=== PATIENT | female | born 1950 | race Caucasian/White ===

== ENCOUNTER 2020-11-01 09:24 | Outpatient (CLI) | payer MEDICARE, BC, SELFPAY ==
--- NOTE | 2020-11-01 09:33 | MM_ITS ---
WS: [id number] BILATERAL DIGITAL SCREENING MAMMOGRAPHY WITH CAD CLINICAL INFORMATION: SCREENING HISTORY: Screening mammogram. No current complaints. COMPARISON: 2018 TECHNIQUE: Bilateral CC and MLO views. FINDINGS: The breasts are composed of heterogeneous fibroglandular density tissue, which can limit the detectio n of small underlying mass lesions. No suspicious mass, asymmetry, calcifications, or architectural d istortion. No evidence of malignancy. Stable punctate calcifications. MM/[place] [id number] IMPRESSION: BI-RADS: 2-Benign FOLLOW UP: 1 Year Follow-up Recommend return to annual screening mammography.
== END 2020-11-01 09:25 | disposition home or self-care (01) ==
LOC: RADSHAW 09:29
PROVIDERS: Family Provider Family Medicine; PCP Family Medicine; Visit Provider Family Medicine
DX: Z12.31 Encounter for screening mammogram for malignant neoplasm of breast (principal)
CPT/HCPCS: 77067

== ENCOUNTER 2021-10-09 11:32 | Outpatient (RCR) | payer MEDICARE, BC, SELFPAY | END 2021-10-23 23:59 | disposition home or self-care (01) | LOC: SPT 11:32 | PROVIDERS: PCP Family Medicine; Visit Provider Family Medicine | DX: M54.6 Pain in thoracic spine (principal) | CPT/HCPCS: 97110; 97162 ==

== ENCOUNTER 2021-10-24 06:00 | Outpatient (RCR) | payer MEDICARE, BC, SELFPAY | END 2021-11-23 23:59 | disposition home or self-care (01) | LOC: SPT 06:00 | PROVIDERS: PCP Family Medicine; Visit Provider Family Medicine | DX: M54.6 Pain in thoracic spine (principal) | CPT/HCPCS: 97110 ==

== ENCOUNTER 2022-01-22 09:05 | Outpatient (CLI) | payer MEDICARE, BC, SELFPAY ==
--- NOTE | 2022-01-22 09:31 | MM_ITS ---
WS: [id number] BILATERAL DIGITAL SCREENING MAMMOGRAPHY WITH CAD CLINICAL INFORMATION: SCREEN HISTORY: Screening mammogram. No current complaints. COMPARISON: November 01, 2020 TECHNIQUE: Bilateral CC and MLO views. FINDINGS: Scattered fibroglandular densities bilaterally. Similar-appearing diffuse punctate calcifications bot h breasts. Vascular calcification. Stable clustered calcifications RIGHT breast. Suspicious focal mas s, asymmetry, calcifications, or architectural distortion. No evidence of malignancy. MM/[place] [id number] IMPRESSION: BI-RADS: 2-Benign FOLLOW UP: 1 Year Follow-up Recommend return to annual screening mammography.
== END 2022-01-22 09:06 | disposition home or self-care (01) ==
PROVIDERS: PCP Family Medicine; Visit Provider Family Medicine
DX: Z12.31 Encounter for screening mammogram for malignant neoplasm of breast (principal)
CPT/HCPCS: 77067

== ENCOUNTER → 2022-02-26 09:00 | Outpatient (BNVA) | payer MEDICARE, BC, SELFPAY | PROVIDERS: PCP Family Medicine; Referring Provider Family Medicine; Visit Provider Orthopaedic Surgery | DX: M41.9 Scoliosis, unspecified (principal) | CPT/HCPCS: 72072; 99204 ==

== ENCOUNTER → 2022-06-04 09:08 | Outpatient (BNVA) | payer MEDICARE, BC, SELFPAY | PROVIDERS: PCP Family Medicine; Visit Provider Orthopaedic Surgery | DX: M41.86 Other forms of scoliosis, lumbar region (principal); M41.9 Scoliosis, unspecified; R10.32 Left lower quadrant pain; M54.50 Low back pain, unspecified | CPT/HCPCS: 72070; 72110; 99213; 99214 ==

== ENCOUNTER → 2022-06-20 13:35 | Outpatient (BNVA) | payer MEDICARE, BC, SELFPAY | PROVIDERS: PCP Family Medicine; Visit Provider Surgery | DX: K59.00 Constipation, unspecified (principal); R10.9 Unspecified abdominal pain | CPT/HCPCS: 99203 ==

== ENCOUNTER 2022-07-10 20:35 | Emergency (ER) | payer MEDICARE, BC, SELFPAY ==
[2022-07-10 20:52] VITALS: BP 158/81; PULSE 68; RESP 20; TEMP 36.3; O2SAT 97; BMI 32.3
--- NOTE | 2022-07-10 21:26 | CTR_ITS ---
PROCEDURE INFORMATION: Exam: CT Abdomen And Pelvis Without Contrast Exam date and time: 07/10/2022 11:42 PM Age: 71 years old Clinical indication: Abdominal pain; Right; Patient HX: C/O RT flank pain and constipation. ; Additional info: Abd pain TECHNIQUE: Imaging protocol: Computed tomography of the abdomen and pelvis without contrast. Radiation optimization: All CT scans at this facility use at least one of these dose optimization techniques: automated exposure control; mA and/or kV adjustment per patient size (includes targeted exams where dose is matched to clinical indication); or iterative reconstruction. COMPARISON: CR XR abdomen 1V* [id number] 05/31/2022 9:35 AM RADIATION DOSE METRICS: Total DLP (mGy-cm): 741.39 FINDINGS: Lungs: Bibasilar atelectasis versus minimal infiltrate. Heart: Coronary artery atherosclerotic calcifications. Liver: Normal. No mass. Gallbladder and bile ducts: Normal. No calcified stones. No ductal dilation. Pancreas: Normal. No ductal dilation. Spleen: Normal. No splenomegaly. Adrenal glands: Normal. No mass. Kidneys and ureters: Right kidney severe hydronephrosis extending to the level of the ureteropelvic junction suggestive of a ureteropelvic junction stricture, negative for urinary calculus seen, a CT with intravenous contrast with delayed phase imaging could further evaluate this. Stomach and bowel: Constipation. Appendix: No evidence of appendicitis. Intraperitoneal space: Unremarkable. No free air. No significant fluid collection. Vasculature: Unremarkable. No abdominal aortic aneurysm. Lymph nodes: Unremarkable. No enlarged lymph nodes. Urinary bladder: See Kidneys and ureters finding. Reproductive: Unremarkable as visualized. Bones/joints: Unremarkable. No acute fracture. Soft tissues: Unremarkable. CT/CT abdomen pelvis con [id number] IMPRESSION: 1. Right kidney severe hydronephrosis extending to the level of the ureteropelvic junction suggestive of a ureteropelvic junction stricture, negative for urinary calculus seen, a CT with intravenous contrast with delayed phase imaging could further evaluate this. 2. Bibasilar atelectasis versus minimal infiltrate. 3. Coronary artery atherosclerotic calcifications. 4. Constipation.
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
[2022-07-10 21:29] VITALS: BP 174/95; PULSE 82; RESP 20; TEMP 36.6; O2SAT 100
[2022-07-10 21:50] VITALS: O2SAT 99
[2022-07-10] MEDS: sodium chloride 0.9% 1,000 ML 999 ML IV (22:00)
[2022-07-10 22:12] VITALS: BP 188/82; PULSE 60; RESP 19; O2SAT 99
--- NOTE | 2022-07-10 22:15 | ECG_ITS ---
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 Measurements Intervals Berino Rate: 52 P: 64 ND: 186 QRS: 88 QRSD: 97 T: 51 QT: 429 QTc: 403 Interpretive Statements SINUS BRADYCARDIA LEFT ATRIAL ENLARGEMENT [-0.15mV P-WAVE IN V1/V2] No previous ECG available for comparison Electronically Signed On 07-10-2022 23:36:22 CDT by Luis Enrique Metzger M.D. [email or web address] hospital for women and infantsBasis Technologycleveland clinic marymount hospitalEmbo Medical/store/OM/[id number]
[2022-07-10 22:43] LABS: Add Urine Microscopic? NO; Charge for UA Resulting for Rev
[2022-07-10 22:47] LABS: Bilirubin Urine Neg (Negative); Blood Urine Neg (Negative); Glucose Urine UA Norm (Normal); Ketones Urine 1+ (Negative); Leukocyte Esterase Urine Negative (Negative); Nitrate Urine Negative (Negative); Protein Urine Neg (Negative); Specific Gravity, Urine 1.015 (1.005-1.030); Urine Appearance Clear (CLEAR); Urine Color Yellow (Yellow); Urobilinogen Urine Norm (Negative); pH Urine 7 (5-7)
[2022-07-10 23:29] LABS: Basophils % 0.4 %; Eosinophils % 0.2 %; Hematocrit 37.2 % (37.0-47.0); Hemoglobin 12.4 g/dL (11.5-15.3); Lymphocytes # 1.1 10^3/uL (0.8-4.8); Lymphocytes % 10.4 %; Mean Corpuscular HGB Conc 33.3 g/dL (30.0-36.0); Mean Corpuscular Hemoglobin 31.6 pg (28.0-34.0); Mean Corpuscular Volume 94.7 fl (81-99); Mean Platelet Volume 10.7 fL (7.4-10.4); Monocytes # 0.6 10^3/uL (0.2-0.9); Monocytes % 5.4 %; Neutrophils # 8.45 10^3/uL (1.8-7.7); Neutrophils % 83.3 %; Nucleated Red Blood Cells % 0 %; Platelet Count 226 10^3/cmm (130-400); Red Blood Count 3.93 10^6/uL (4.1-5.3); Red Cell Distribution Width 12.9 % (12.1-15.1); White Blood Count 10.2 10^3/uL (4.0-10.0)
[2022-07-10 23:33] LABS: Adenovirus Not Detected (NOT DETECT); Chlamydia Pneumoniae Not Detected (NOT DETECT); Coronavirus 229E,HKU1,NL63,OC4 Not Detected (NOT DETECT); Human Metapneumovirus Not Detected (NOT DETECT); Human Rhinovirus/Enterovirus Not Detected (NOT DETECT); Influenza A Not Detected (NOT DETECT); Influenza A H1 Not Detected (NOT DETECT); Influenza A H1-2009 Not Detected (NOT DETECT); Influenza A H3 Not Detected (NOT DETECT); Influenza B Not Detected (NOT DETECT); Mycoplasma Pneumoniae Not Detected (NOT DETECT); Parainfluenza Virus Type 1 Not Detected (NOT DETECT); Parainfluenza Virus Type 2 Not Detected (NOT DETECT); Parainfluenza Virus Type 3 Not Detected (NOT DETECT); Parainfluenza Virus Type 4 Not Detected (NOT DETECT); Respiratory Syncytial Virus A Not Detected (NOT DETECT); Respiratory Syncytial Virus B Not Detected (NOT DETECT); SARS-COV-2 Not Detected (NOT DETECT)
[2022-07-10 23:34] VITALS: RESP 20; O2SAT 98
[2022-07-10] MEDS: morphine 4 mg/mL SDV 1 mL IVP (23:34)
[2022-07-10 23:47] LABS: Troponin(5th) Baseline 10 ng/L (0-10)
[2022-07-10 23:49] LABS: Alanine Aminotransferase 29 U/L (0-33); Albumin Level 3.7 g/dL (3.5-5.2); Alkaline Phosphatase 97 U/L (35-105); Anion Gap 13.9 (5-19); Aspartate Amino Transferase 21 U/L (0-32); Blood Urea Nitrogen 14 mg/dL (8-23); Calcium 8.7 mg/dL (8.5-10.5); Carbon Dioxide 25 mmol/L (22-29); Chloride 101 mmol/L (98-107); Globulin 2.4 g/dL (1.3-4.6); Glomerular Filtration Rate 99.1 mL/min (90-130); Glucose 113 mg/dL (65-115); Lipase 25 U/L (13-60); Osmolality Calculated 283 mOsm/kg (285-295); Potassium 3.9 mmol/L (3.5-5.1); Sodium 136 mmol/L (136-145); Total Bilirubin 0.4 mg/dL (0.15-1.2); Total Protein 6.1 g/dL (6.6-8.7)
--- NOTE | 2022-07-11 00:06 | ECG_ITS ---
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 Measurements Intervals Edgard Rate: 61 P: 58 CO: 179 QRS: 71 QRSD: 99 T: 34 QT: 410 QTc: 414 Interpretive Statements SINUS RHYTHM LEFT ATRIAL ENLARGEMENT [-0.15mV P-WAVE IN V1/V2] POSSIBLE RIGHT VENTRICULAR CONDUCTION DELAY [RSR (QR) IN V1/V2] Compared to ECG 07/10/2022 22:46:43 Sinus bradycardia no longer present Electronically Signed On 07-11-2022 22:53:18 CDT by Rosa M Velarde M.D. [email or web address] [email or web address] Nutrition & Cardiometabolismegrand lake [facility].[employer]/store/OM/[id number]/[id number]
[2022-07-11 00:08] VITALS: BP 164/70; PULSE 60; RESP 17; O2SAT 99
[2022-07-11 01:00] VITALS: BP 158/70; PULSE 58; RESP 19; O2SAT 98
[2022-07-11 01:26] VITALS: BP 158/70; PULSE 58; RESP 19; O2SAT 98
--- NOTE | 2022-07-11 10:10 | DCPLANNER ---
Addendum entered by Mally Gallardo 07/12/22 13:51: Patient had a follow up appointment scheduled for 07.12.22 with urology - patient did attend appointment. Original Note: curriculum manager had message to schedule a follow up appointment for patient with urology. curriculum manager sent patients information to the front office staff at urology. Patients information will be printed and reviewed. Clinic will call patient with appointment information.
== END 2022-07-11 01:28 | disposition home or self-care (01) ==
PROVIDERS: Emergency Medicine; Emergency Provider Emergency Medicine; PCP Family Medicine
DX: N13.30 Unspecified hydronephrosis (principal); Z20.822 Contact with and (suspected) exposure to COVID-19
CPT/HCPCS: 74176; 80053; 81003; 83690; 84484; 85025; 87635; 93005; 96361; 96374; 99285; J2270; J7030

== ENCOUNTER → 2022-07-12 11:31 | Outpatient (BNVA) | payer MEDICARE, BC, SELFPAY | PROVIDERS: PCP Family Medicine; Visit Provider Urology | DX: R10.9 Unspecified abdominal pain (principal); N13.30 Unspecified hydronephrosis | CPT/HCPCS: 81003; 99203 ==

== ENCOUNTER 2022-08-08 07:17 | Outpatient (CLI) | payer MEDICARE, BC, SELFPAY ==
--- NOTE | 2022-08-08 07:20 | NMR_ITS ---
PROCEDURE INFORMATION: Exam: PR Kidney Imaging with Vascular Flow and Function, Single Study, with Pharmacological Intervention Exam date and time: 08/08/2022 7:20 AM Age: 71 years old Clinical indication: Condition or disease; Kidney or ureter condition; Hydronephrosis; Prior surgery; Surgery type: D&c colonoscopy; Additional info: Hydronephrosis, renal scan with lasix 08/08/22 @ 8:00 appt to follow TECHNIQUE: Imaging protocol: Kidney imaging morphology with angiographic images were obtained after diuretic or LUISITO inhibitor was administered and additional planar images were obtained. after radiopharmaceutical administration. This radiotracer utilized for calculation of the GFR. Radiopharmaceutical: 12.2 mCi technetium 99 M DTPA injected intravenously. COMPARISON: CT abdomen pelvis wo con [id number] 07/10/2022 11:42 PM FINDINGS: Medications: The Lasix renogram was performed using 40 mg of Lasix at 15 minutes Kidneys: The radionuclide angiographic images show perfusion to both kidneys, although the perfusion to the right kidney is mildly diminished and delayed relative to the unremarkable left kidney. Nephrographic images demonstrate prompt, unremarkable radiotracer accumulation and excretion from the left kidney. There is progressively accumulating radiotracer in the right renal parenchyma throughout the exam with evidence of minimal excretion. No significant changes in the excretion pattern upon Lasix administration. Left renal GFR: Left calculated GFR (ml/min) is 73.75. Right renal GFR: Right calculated GFR (ml/min) is 95.54. Post Lasix Left Kidney: Left T1/2 is 29.82 minutes after Lasix. Post Lasix Right kidney: Right T1/2 is not applicable after Lasix. PR/PR renal flow w pharm [id number] IMPRESSION: 1. Abnormal nuclear medicine Lasix renogram. 2. High-grade obstruction pattern of right kidney. In correlation with available CT scan imaging this likely represents ureteropelvic junction obstruction. 3. No significant left renal abnormality.
== END 2022-08-08 07:18 | disposition home or self-care (01) ==
LOC: RAD 07:19
PROVIDERS: PCP Family Medicine; Visit Provider Urology
DX: M41.9 Scoliosis, unspecified; R10.9 Unspecified abdominal pain; N13.0 Hydronephrosis with ureteropelvic junction obstruction
CPT/HCPCS: 78708; 81003; 99213; A9539; J1940

== ENCOUNTER → 2022-08-27 09:25 | Outpatient (BNVA) | payer MEDICARE, BC, SELFPAY | PROVIDERS: PCP Family Medicine; Visit Provider Orthopaedic Surgery | DX: M41.9 Scoliosis, unspecified (principal); M81.0 Age-related osteoporosis without current pathological fracture; M54.9 Dorsalgia, unspecified | CPT/HCPCS: 99214 ==

== ENCOUNTER 2022-09-25 12:52 | Outpatient (CLI) | payer MEDICARE, BC, SELFPAY ==
--- NOTE | 2022-09-25 13:00 | XR_ITS ---
WS: [id number] DEXA (DUAL ENERGY X-RAY ABSORPTIOMETRY) Bone mineral density was performed using a CNG-One machine. HISTORY: 69 degree curvature of spine/osteoporosis COMPARISON: None available. Lumbar spine BMD (L1-L4): 1.218 g/cm2 T score: 0.3 Z score: 1.7 Total hip BMD: Left: 0.770 g/cm2. T score: -1.9 Z score: -0.6 Right: 0.721 g/cm2. T score: -2.3 Z score: -1.0 10 year probability of a major osteoporotic fracture is 27.9%. Severe RIGHT scoliosis of the lumbar spine. Increased sclerosis along the concave curvature. XR/XR DEXA axial skeleton* [id number] IMPRESSION: OSTEOPENIA based upon the WHO classification for females.
== END 2022-09-25 12:53 | disposition home or self-care (01) ==
LOC: RAD 12:53
PROVIDERS: PCP Family Medicine; Visit Provider Orthopaedic Surgery
DX: M81.0 Age-related osteoporosis without current pathological fracture (principal); M41.9 Scoliosis, unspecified; M85.80 Other specified disorders of bone density and structure, unspecified site
CPT/HCPCS: 77080

== ENCOUNTER → 2022-12-10 10:38 | Outpatient (BNVA) | payer MEDICARE, BC, SELFPAY | PROVIDERS: PCP Family Medicine; Visit Provider Orthopaedic Surgery | DX: M80.08XA Age-related osteoporosis with current pathological fracture, vertebra(e), initial encounter for fracture (principal) | CPT/HCPCS: 99213 ==

== ENCOUNTER → 2023-01-09 12:33 | Outpatient (BNVA) | payer MEDICARE, BC, SELFPAY | PROVIDERS: PCP Family Medicine; Referring Provider Orthopaedic Surgery; Visit Provider Internal Medicine | DX: M81.0 Age-related osteoporosis without current pathological fracture (principal); K59.00 Constipation, unspecified | CPT/HCPCS: 99204 ==

== ENCOUNTER 2023-01-13 09:03 | Outpatient (CLI) | payer MEDICARE, BC, SELFPAY ==
[2023-01-13 09:54] LABS: Calcium 9.2 mg/dL (8.5-10.5)
[2023-01-13 09:58] LABS: Alanine Aminotransferase 18 U/L (0-33); Albumin Level 3.8 g/dL (3.5-5.2); Alkaline Phosphatase 86 U/L (35-105); Anion Gap 14.2 (5-19); Aspartate Amino Transferase 21 U/L (0-32); Blood Urea Nitrogen 15 mg/dL (8-23); Calcium 9.2 mg/dL (8.5-10.5); Carbon Dioxide 26 mmol/L (22-29); Chloride 105 mmol/L (98-107); Free T4 Free Thyroxine 1.11 ng/dL (0.82-1.77); Glomerular Filtration Rate 82.7 mL/min (90-130); Glucose 105 mg/dL (65-115); Osmolality Calculated 293 mOsm/kg (285-295); Potassium 4.2 mmol/L (3.5-5.1); Sodium 141 mmol/L (136-145); Thyroid Stimulating Hormone 3.48 uIU/mL (0.27-4.20); Total Bilirubin 0.4 mg/dL (0.15-1.2); Total Protein 6.8 g/dL (6.6-8.7)
[2023-01-13 10:01] LABS: Parathyroid Hormone 49.3 pg/mL (15-65)
[2023-01-13 10:53] LABS: 25 Hydroxy Vitamin D 33 ng/mL (30-100)
== END 2023-01-13 09:04 | disposition home or self-care (01) ==
LOC: LAB 09:10
PROVIDERS: PCP Family Medicine; Visit Provider Internal Medicine
DX: M81.0 Age-related osteoporosis without current pathological fracture (principal); K59.00 Constipation, unspecified
CPT/HCPCS: 36415; 80053; 82306; 82310; 83970; 84439; 84443

== ENCOUNTER → 2023-01-23 07:58 | Outpatient (BNVA) | payer MEDICARE, BC, SELFPAY | PROVIDERS: PCP Family Medicine; Visit Provider Internal Medicine | DX: M41.9 Scoliosis, unspecified (principal); M85.80 Other specified disorders of bone density and structure, unspecified site; E55.9 Vitamin D deficiency, unspecified | CPT/HCPCS: 99215 ==

== ENCOUNTER 2023-01-24 08:42 | Outpatient (CLI) | payer MEDICARE, BC, SELFPAY ==
--- NOTE | 2023-01-24 08:49 | MM_ITS ---
WS: [id number] BILATERAL SCREENING DIGITAL TOMOSYNTHESIS MAMMOGRAM WITH CAD HISTORY: SCREENING COMPARISON: 01/22/2022, 11/01/2020 Bilateral CC and MLO views with tomosynthesis and synthetic mammography submitted. Computer aided det ection analyzed. Breast composition: The breasts are heterogeneously dense, which may obscure small masses. No suspici ous masses, microcalcifications or architectural distortion. Numerous benign central calcifications t hroughout each breast. MM/[place] [id number] IMPRESSION: BI-RADS: 2-Benign FOLLOW UP: 1 Year Follow-up
== END 2023-01-24 08:43 | disposition home or self-care (01) ==
PROVIDERS: PCP Family Medicine; Visit Provider Family Medicine
DX: Z12.31 Encounter for screening mammogram for malignant neoplasm of breast (principal)
CPT/HCPCS: 77063; 77067

== ENCOUNTER 2023-02-10 17:22 | Emergency (ER) | payer MEDICARE, BC, SELFPAY ==
[2023-02-10 18:11] VITALS: BP 177/106; PULSE 64; RESP 16; TEMP 35.9; O2SAT 97; BMI 31.5
[2023-02-10 19:01] LABS: Basophils % 0.4 %; Eosinophils % 0.3 %; Hematocrit 40.4 % (37.0-47.0); Hemoglobin 13.2 g/dL (11.5-15.3); Lymphocytes # 1.1 10^3/uL (0.8-4.8); Lymphocytes % 10.2 %; Mean Corpuscular HGB Conc 32.7 g/dL (30.0-36.0); Mean Corpuscular Hemoglobin 31.2 pg (28.0-34.0); Mean Corpuscular Volume 95.5 fl (81-99); Mean Platelet Volume 11.4 fL (7.4-10.4); Monocytes # 0.6 10^3/uL (0.2-0.9); Monocytes % 5.7 %; Neutrophils # 8.93 10^3/uL (1.8-7.7); Neutrophils % 82.9 %; Nucleated Red Blood Cells % 0 %; Platelet Count 240 10^3/cmm (130-400); Red Blood Count 4.23 10^6/uL (4.1-5.3); Red Cell Distribution Width 12.9 % (12.1-15.1); White Blood Count 10.8 10^3/uL (4.0-10.0)
[2023-02-10 19:24] LABS: Alanine Aminotransferase 22 U/L (0-33); Albumin Level 4.1 g/dL (3.5-5.2); Alkaline Phosphatase 89 U/L (35-105); Aspartate Amino Transferase 21 U/L (0-32); Blood Urea Nitrogen 13 mg/dL (8-23); Calcium 8.7 mg/dL (8.5-10.5); Carbon Dioxide 25 mmol/L (22-29); Chloride 101 mmol/L (98-107); Globulin 2.9 g/dL (1.3-4.6); Glomerular Filtration Rate 98.8 mL/min (90-130); Glucose 118 mg/dL (65-115); Lipase 44 U/L (13-60); Osmolality Calculated 285 mOsm/kg (285-295); Sodium 137 mmol/L (136-145); Total Bilirubin 0.3 mg/dL (0.15-1.2)
--- NOTE | 2023-02-10 19:29 | W.ED.ABDPA2 ---
HPI - Abdominal Pain General: Chief Complaint: Abdominal Pain Stated Complaint: back pain Time Seen by Provider: 02/10/23 19:29 History of Present Illness: Ms. Rushing is a 72-year-old lady presenting to the emergency department due to abdominal pain. She reports onset of symptoms with no known specific provoking event overnight. Since onset of symptoms have worsened. She notes mostly right lower quadrant pain. She tried medications for GI upset however has not had significant improvement. Intensity symptoms is moderate. Worse with palpation and movement. No other specific changes in health, exacerbating, or alleviating factors identified. Onset (ago): hour(s) Pain Consistency: constant Location: RLQ Severity: moderate Quality: aching and other Radiation: none Migration to: no migration Exacerbating factors: movement and other Relieving factors: nothing Associated Symptoms: Reports dyspepsia Review of Systems General: Reports: 10 or more systems reviewed and unremarkable except in HPI and below PFSH ED PFSH: Medical History (Updated 02/22/23 @ 05:36 by Liz Gilman MD) Constipation History of colon polyps Obstruction of right ureteropelvic junction (UPJ) Osteopenia Scoliosis Surgical History (Updated 02/22/23 @ 05:38 by Liz Gilman MD) History of arthroscopy of left knee History of section History of chest tube placement History of colonoscopy with polypectomy History of dilation and curettage History of laparoscopy History of left salpingo-oophorectomy History of right knee surgery History of tonsillectomy Family History (Updated 02/22/23 @ 05:31 by Liz Gilman MD) Father , 49 Cancer lung Mother Skin cancer Social History (Updated 02/22/23 @ 05:30 by Liz Gilman MD) Smoking and tobacco status: former smoker Alcohol intake: current Alcohol intake frequency: holidays/special occasions only Substance/Drug Use: never Marital status: Current occupational status: employed 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 Physical Exam Const: COMMON NORMALS: alert GENERAL APPEARANCE: cooperative and well developed HENMT: COMMON NORMALS: normocephalic and atraumatic HEAD & SCALP: normocephalic and atraumatic Eye: COMMON NORMALS: conjunctivae normal CONJUNCTIVA: Yes conjunctivae normal SCLERA: sclerae normal Neck/C-Spine: COMMON NORMALS: supple GENERAL: Yes trachea midline Resp: COMMON NORMALS: clear to auscultation bilaterally EFFORT & INSPECTION: Yes able to speak in complete sentences AUSCULTATION: clear to auscultation bilaterally Cardio: COMMON NORMALS: regular rate and regular rhythm RATE: regular rate RHYTHM: regular rhythm GI: COMMON NORMALS: Soft to palpation PALPATION: Yes Soft to palpation, Yes Tenderness to palpation present (GI), No Guarding due to palpation present (GI) and No Rigid due to palpation Extremity: GENERAL: Yes normal exam except as noted and No edema Neuro: COMMON NORMALS: moves all extremities SENSORIUM/ORIENTATION: Yes alert and No Orientation impaired Psych: COMMON NORMALS: mental status grossly normal and Normal thought process present THOUGHT PROCESS: Normal thought process present Course Vital Signs: Vital signs: Vital Signs Temperature 96.7 F L 02/10/23 18:11 Pulse Rate 81 02/10/23 22:07 Respiratory Rate 15 02/10/23 22:07 Blood Pressure 145/89 02/10/23 22:07 Pulse Oximetry 98 02/10/23 22:07 Oxygen Delivery Me thod 02/10/23 22:07 MDM - Abdominal Pain Medical Decision Making 72-year-old lady presenting with flank and abdominal pain. Exam as above. Abdominal tenderness without evidence of acute surgical abdomen. Patient is uncomfortable however nontoxic in appearance. Labs with minimal leukocytosis, normal hemoglobin. Metabolic panel without significant arrangement. No UTI. CT imaging demonstrates similar findings to prior with severe right hydronephrosis concerning for UPJ stenosis. Patient proved with analgesia. History is somewhat unclear, the patient does endorse possible improvement at some point however it is unclear whether prior hydronephrosis completely resolved however the degree of which it previously resolved. Regardless, patient is appropriate for outpatient follow-up with urology. The results of ED evaluation were discussed with the patient including prescriptions and/or symptomatic cares (if applicable) including appropriate and responsible use, followup plan, and return precautions. The patient verbalized understanding and felt safe for discharge. Medical Records I reviewed the patient's medical records. Lab Data I reviewed the patient's lab results. 02/10/23 18:36 02/10/23 18:36 Labs/Radiology: Radiology Impressions Abdomen/Pelvis CT 02/10/23 20:14 IMPRESSION: 1. Severe right hydronephrosis. No right nephrolithiasis. Right ureter is normal in caliber. The appearance is unchanged from 07/10/2022, and is consistent with right UPJ stenosis. Left kidney and ureter are unremarkable. 2. No acute abnormality demonstrated. No interval change from 07/10/2022. Laboratory Results WBC 10.8 10^3/uL (4.0-10.0) H 02/10/23 18:36 RBC 4.23 10^6/uL (4.1-5.3) 02/10/23 18:36 Hgb 13.2 g/dL (11.5-15.3) 02/10/23 18:36 Hct 40.4 % (37.0-47.0) 02/10/23 18:36 MCV 95.5 fl (81-99) 02/10/23 18:36 MCH 31.2 pg (28.0-34.0) 02/10/23 18:36 MCHC 32.7 g/dL (30.0-36.0) 02/10/23 18:36 RDW 12.9 % (12.1-15.1) 02/10/23 18:36 Plt Count 240 10^3/cmm (130-400) 02/10/23 18:36 MPV 11.4 fL (7.4-10.4) H 02/10/23 18:36 Neut % (Auto) 82.9 % 02/10/23 18:36 Lymph % (Auto) 10.2 % 02/10/23 18:36 [place] % (Auto) 5.7 % 02/10/23 18:36 Eos % (Auto) 0.3 % 02/10/23 18:36 Baso % (Auto) 0.4 % 02/10/23 18:36 Neut # (Auto) 8.93 10^3/uL (1.8-7.7) H 02/10/23 18:36 Lymph # (Auto) 1.1 10^3/uL (0.8-4.8) 02/10/23 18:36 [place] # (Auto) 0.6 10^3/uL (0.2-0.9) 02/10/23 18:36 Eos # (Auto) 0.0 10^3/uL (0.0-0.8) 02/10/23 18:36 Baso # (Auto) 0.0 10^3/uL (0.0-0.1) 02/10/23 18:36 Nucleated RBC % (auto) 0 % 02/10/23 18:36 Nucleated RBCs # 0.0 /100WBC 02/10/23 18:36 Sodium 137 mmol/L (136-145) 02/10/23 18:36 Potassium 4.0 mmol/L (3.5-5.1) 02/10/23 18:36 Chloride 101 mmol/L (98-107) 02/10/23 18:36 Carbon Dioxide 25 mmol/L (22-29) 02/10/23 18:36 Anion Gap 15.0 (5-19) 02/10/23 18:36 BUN 13 mg/dL (8-23) 02/10/23 18:36 Creatinine 0.6 mg/dL (0.5-0.9) 02/10/23 18:36 GFR Calculation 98.8 mL/min (90-130) 02/10/23 18:36 Glucose 118 mg/dL (65-115) H 02/10/23 18:36 Calculated Osmolality 285 mOsm/kg (285-295) 02/10/23 18:36 Calcium 8.7 mg/dL (8.5-10.5) 02/10/23 18:36 Total Bilirubin 0.3 mg/dL (0.15-1.2) 02/10/23 18:36 AST 21 U/L (0-32) 02/10/23 18:36 ALT 22 U/L (0-33) 02/10/23 18:36 Alkaline Phosphatase 89 U/L (35-105) 02/10/23 18:36 Total Protein 7.0 g/dL (6.6-8.7) 02/10/23 18:36 Albumin 4.1 g/dL (3.5-5.2) 02/10/23 18:36 Globulin 2.9 g/dL (1.3-4.6) 02/10/23 18:36 Lipase 44 U/L (13-60) 02/10/23 18:36 Urine Color Yellow (Yellow) 02/10/23 19:52 Urine Appearance Clear (CLEAR) 02/10/23 19:52 Urine pH 7 (5-7) 02/10/23 19:52 Ur Specific [place] 1.010 (1.005-1.030) 02/10/23 19:52 Urine Protein Neg (Negative) 02/10/23 19:52 Urine Glucose (UA) Norm (Normal) 02/10/23 19:52 Urine Ketones Negative (Negative) 02/10/23 19:52 Urine Blood Neg (Negative) 02/10/23 19:52 Urine Nitrate Negative (Negative) 02/10/23 19:52 Urine Bilirubin Neg (Negative) 02/10/23 19:52 Urine Urobilinogen Neg mg/dL (Negative) 02/10/23 19:52 Ur Leukocyte Esterase Negative (Negative) 02/10/23 19:52 Discharge Plan Discharge Patient Disposition: Home Clinical Impression: Obstruction of right ureteropelvic junction (UPJ), Abdominal pain, Hydronephrosis of right kidney Condition: Stable Prescriptions: No Action multivitamin Tablet 1 tab PO DAILY omega3 as directed calcium/magnes/zinc as directed magnesium citrate 100 mg capsule 100 mg PO DAILY polyethylene glycol 3350 [Miralax] 17 gram/dose powder 4 g PO DAILY Discharge Orders: Discharge ED (Routine); Ordered 02/10/23 Ordered By: Kevin Bradford Referrals: Ashley Kc MD [Primary Care Provider] - Discharge Diet: Usual diet Discharge Activity: Resume usual activity Patient Instructions: Abdominal Pain (ED), Hydronephrosis (ED), Opioid Safety Activity Restrictions/Additional Instructions: Thank you for visiting the emergency department. You were seen and evaluated for abdominal pain. The exact cause of your symptoms is unclear though may be related to recurrence or persistent hydronephrosis due to suspected ureteropelvic junction obstruction. I will message case management for urology follow-up. Please also follow-up with your primary care provider. Return to the emergency department for uncontrolled pain, fevers, blood or changes in urination, or anything else that you are concerned about and feel needs emergency department evaluation. Coding Level of Care Code ED [employer] for David Wong
[2023-02-10 20:09] LABS: Add Urine Microscopic? NO; Charge for UA Resulting for Rev
[2023-02-10 20:11] LABS: Bilirubin Urine Neg (Negative); Blood Urine Neg (Negative); Glucose Urine UA Norm (Normal); Ketones Urine Negative (Negative); Leukocyte Esterase Urine Negative (Negative); Nitrate Urine Negative (Negative); Protein Urine Neg (Negative); Urine Appearance Clear (CLEAR); Urine Color Yellow (Yellow); Urobilinogen Urine Neg (Negative); pH Urine 7 (5-7)
--- NOTE | 2023-02-10 20:14 | CTR_ITS ---
PROCEDURE INFORMATION: Exam: CT Abdomen And Pelvis With Contrast Exam date and time: 02/10/2023 8:45 PM Age: 72 years old Clinical indication: Abdominal pain; Acute; Additional info: Rlq pain TECHNIQUE: Imaging protocol: Computed tomography of the abdomen and pelvis with contrast. Radiation optimization: All CT scans at this facility use at least one of these dose optimization techniques: automated exposure control; mA and/or kV adjustment per patient size (includes targeted exams where dose is matched to clinical indication); or iterative reconstruction. Contrast material: OMNI 350; Contrast volume: 100 ml; Contrast route: INTRAVENOUS (IV); REPORTING DATA: Count of CT and Cardiac NM exams in prior 12 months: This patient has received [address] and 0 known cardiac nuclear medicine studies in the 12 months prior to the current study. COMPARISON: CT abdomen pelvis wo con [id number] 07/10/2022 11:42 PM RADIATION DOSE METRICS: Total DLP (mGy-cm): 583.22 FINDINGS: Lungs: 3 mm calcified granuloma right lung base. Liver: The liver is unremarkable in appearance. Gallbladder and bile ducts: No calcified gallstones in the gallbladder. No gallbladder wall thickening. No pericholecystic fluid. No biliary dilatation. Pancreas: The pancreas is normal in appearance. No pancreatic duct dilatation. Spleen: No focal splenic lesion. No splenomegaly. Adrenal glands: Unremarkable. No mass. Kidneys and ureters: Severe right hydronephrosis. No right nephrolithiasis. Right ureter is normal in caliber. The appearance is unchanged from 07/10/2022, and is consistent with right UPJ stenosis. Left kidney and ureter are unremarkable. Stomach and bowel: No acute gastric abnormality demonstrated. The small bowel is unremarkable as demonstrated. No acute abnormality/inflammatory change of the colon. Appendix: No evidence of appendicitis. Intraperitoneal space: No pneumoperitoneum. No significant fluid collection. Vasculature: Mild atherosclerosis of the abdominal aorta. No aneurysm. Lymph nodes: No pathologically enlarged lymph nodes. Urinary bladder: Unremarkable as visualized. Reproductive: Uterus and adnexa appear unremarkable. Bones/joints: Scoliosis and degeneration of the lumbar spine. Soft tissues: The soft tissues are unremarkable as demonstrated. CT/CT abdomen pelvis w con* [id number] IMPRESSION: 1. Severe right hydronephrosis. No right nephrolithiasis. Right ureter is normal in caliber. The appearance is unchanged from 07/10/2022, and is consistent with right UPJ stenosis. Left kidney and ureter are unremarkable. 2. No acute abnormality demonstrated. No interval change from 07/10/2022.
[2023-02-10] MEDS: iohexol 350 mg/mL 500 mL Btl (per mL) IV (20:48)
[2023-02-10 22:07] VITALS: BP 145/89; PULSE 81; RESP 15; O2SAT 98
--- NOTE | 2023-02-11 10:20 | DCPLANNER ---
Addendum entered by Mally Gallardo 02/13/23 08:21: Patient had a follow up appointment scheduled with urology - patient did attend appointment Addendum entered by Mally Gallardo 02/12/23 08:10: Patient has a follow up appointment scheduled for Friday, February 12, 2023 at 12:[address] Harden. Clinic will call patient with appointment information. Original Note: manager commodities had message to schedule a follow up appointment for patient with urology. manager commodities sent patients information to the front office staff at urology. Patients information will be printed and reviewed. Clinic will call patient with appointment information.
== END 2023-02-10 22:06 | disposition home or self-care (01) ==
PROVIDERS: Emergency Medicine; Emergency Provider Emergency Medicine; PCP Family Medicine
DX: N13.1 Hydronephrosis with ureteral stricture, not elsewhere classified (principal); Z87.891 Personal history of nicotine dependence
CPT/HCPCS: 36415; 74177; 80053; 81003; 83690; 85025; 99285; Q9967

== ENCOUNTER 2023-02-12 12:13 | Outpatient (CLI) | payer MEDICARE, BC, SELFPAY ==
--- NOTE | 2023-02-12 12:26 | XR_ITS ---
WS: [id number] EXAMINATION: XR KUB [id number] REASON FOR EXAM: STONES COMPARISON: None available. ORDER DATE: 02/12/2023 12:29 PM FINDINGS: No abnormal intraabdominal masses or calcifications are seen. There is no dilatated small bowel or evidence of obstruction. There is a large amount of fecal material throughout the colon. 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 IMPRESSION no acute change in the bowel gas pattern or in the spinal scoliosis
== END 2023-02-12 12:14 | disposition home or self-care (01) ==
LOC: RAD 12:20
PROVIDERS: PCP Family Medicine; Visit Provider Urology
DX: N13.5 Crossing vessel and stricture of ureter without hydronephrosis (principal); N13.30 Unspecified hydronephrosis; R10.9 Unspecified abdominal pain
CPT/HCPCS: 74018; 99214

== ENCOUNTER → 2023-02-19 11:00 | Outpatient (BNVA) | payer MEDICARE, BC, SELFPAY | PROVIDERS: PCP Family Medicine; Visit Provider Family Medicine | DX: R31.9 Hematuria, unspecified (principal) | CPT/HCPCS: 81003 ==

== ENCOUNTER 2023-02-21 08:52 | Oncology outpatient (recurring) (ONCR) | payer MEDICARE, BC, SELFPAY ==
[2023-02-21] MEDS: denosumab 60 mg SDV SUBCUT (09:19)
[2023-02-21 09:22] VITALS: BP 140/82; PULSE 67; TEMP 36.9
== END 2023-02-21 23:59 | disposition home or self-care (01) ==
PROVIDERS: PCP Family Medicine; Visit Provider Internal Medicine
DX: M81.0 Age-related osteoporosis without current pathological fracture (principal); Z79.899 Other long term (current) drug therapy
CPT/HCPCS: 96372; J0897

== ENCOUNTER → 2023-03-27 13:43 | Outpatient (BNVA) | payer MEDICARE, BC, SELFPAY | PROVIDERS: PCP Family Medicine; Visit Provider Surgery | DX: K59.00 Constipation, unspecified (principal) | CPT/HCPCS: 99203 ==

== ENCOUNTER → 2023-04-16 12:05 | Outpatient (BNVA) | payer MEDICARE, BC, SELFPAY | PROVIDERS: PCP Family Medicine; Visit Provider Family Medicine | DX: R73.9 Hyperglycemia, unspecified (principal); Z13.6 Encounter for screening for cardiovascular disorders | CPT/HCPCS: 80061; 83036 ==

== ENCOUNTER 2023-04-23 07:38 | Day surgery (SDC) | payer MEDICARE, BC, SELFPAY ==
[2023-04-18 13:37] VITALS: BMI 29.0
[2023-04-23 07:54] VITALS: BP 145/80; PULSE 75; RESP 16; TEMP 36.3; O2SAT 100
[2023-04-23] MEDS: sodium chloride 0.9% 1,000 ML 30 ML IV (07:59)
--- NOTE | 2023-04-23 08:35 | ANES.PREANE2 ---
Pre-Anesthetic Assessment Height/Weight: Height 1.55 m Weight 69.853 kg Temp Pulse Resp BP Pulse Ox O2 Del Method 97.4 F L 75 16 145/80 100 Room Air 04/23/23 07:54 04/23/23 07:54 04/23/23 07:54 04/23/23 07:54 04/23/23 07:54 04/23/23 07:54 Preop Diagnosis: Screening Operation Date: 04/23/23 09:30 Proposed Procedures p Colonoscopy 27201,Z12.11(Not Applicable) - Kory Siddiqui DO Familial anesthetic complications: None Was Beta Eusebia taken within 24 hours: N/A Was Clonidine taken within 24 hours: N/A Last intake: Intake Last Liquid Date 04/22/23 Last Liquid Time 23:00 Last Solid Date 04/21/23 Last Solid Time 18:00 Social Alcohol (social) and No tobacco Exam alert, oriented x 3, clear to auscultation bilaterally and regular rate & rhythm Airway Submandibular: within normal limits Cervical ROM: within normal limits Mallampati: Class II Dentition: full History/ROS No significant history except as noted and No significant complaints Pulmonary None reported CV/HEM None reported Unexplained hydronephrosis, last occurance was 1 month ago Hepatic None reported GI None reported Metabolic None reported Musc/skel Scoliosis Osteopenia Neuropsych None reported Anesthetic Plan ASA status: 2 Anesthesia: Anesthesia Evaluation, General and MAC Risk of > 500 ml blood loss (7ml/kg in children): No Medications/Allergies Home Medications Medication Instructions Recorded Confirmed Last Taken Type multivitamin 1 tab PO DAILY 08/02/21 04/18/23 04/21/23 History calcium/magnes/zinc 1 tab PO DAILY 06/20/22 04/18/23 04/21/23 History omega3 1 tab PO DAILY 06/20/22 04/18/23 04/21/23 History magnesium citrate 100 mg capsule 100 mg PO DAILY 07/12/22 04/18/23 04/21/23 History magnesium oxide 500 mg capsule 500 mg PO DAILY 03/27/23 04/18/23 04/21/23 History melatonin 3 mg capsule 3 mg PO DAILY 03/27/23 04/18/23 04/21/23 History polyethylene glycol 3350 17 4 g PO DAILY PRN Constipation 03/27/23 04/18/23 04/21/23 History gram/dose oral powder (Miralax) dicyclomine 10 mg capsule 10 mg PO BID #60 caps 04/16/23 04/18/23 Unknown Rx Vitamin D3 1 cap PO DAILY 04/18/23 04/18/23 04/21/23 History apple cider vinegar 1 tab PO DAILY 04/18/23 04/18/23 04/21/23 History digestive enzymes 1 tab PO DAILY 04/18/23 04/18/23 04/21/23 History Allergies Allergy/AdvReac Type Severity Reaction Status Date / Time No Known Allergies Allergy Verified 04/18/23 13:29 Current Medications Generic Name Dose Route Start Last Admin Trade Name Freq PRN Reason Stop Dose Admin Sodium Chloride 1,000 mls @ 30 mls/hr 04/23/23 07:45 04/23/23 07:59 Sodium Chloride 0.9% IV 04/24/23 07:44 30 mls/hr .Q24H KAT Administration PFSH Anesthesia Medical History Constipation History of colon polyps Obstruction of right ureteropelvic junction (UPJ) Osteopenia Scoliosis Surgical History History of arthroscopy of left knee History of section History of chest tube placement History of colonoscopy with polypectomy History of dilation and curettage History of laparoscopy History of left salpingo-oophorectomy History of right knee surgery History of tonsillectomy Family History Father , 49 Cancer lung Mother Skin cancer Social History Smoking and tobacco status: former smoker Alcohol intake: current Alcohol intake frequency: holidays/special occasions only Substance/Drug Use: never Marital status: Current occupational status: employed 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
--- NOTE | 2023-04-23 08:46 | W.PM.OPSUD ---
Surgery/Procedure H&P Update DATE OF PROCEDURE: April 23, 2023 DATE H&P PERFORMED: 03/27/23 H&P UPDATE INFORMATION: I have reviewed H&P completed within last 30 days, I have examined patient prior to procedure and No changes to prior documentation PREOP DIAGNOSIS: Screening PLANNED PROCEDURE: Operation Date: 04/23/23 09:30 Proposed Procedures p Colonoscopy 95776,Z12.11(Not Applicable) - Kory Siddiqui, DO
[2023-04-23 09:10] VITALS: BP 93/78; PULSE 88; RESP 14; TEMP 36.2; O2SAT 97
[2023-04-23 09:30] VITALS: BP 96/72; PULSE 62; RESP 16; O2SAT 98
--- NOTE | 2023-04-23 12:46 | ANE.PACU2 ---
Inpatient post-anesthesia follow up: Airway intact: Yes Vital signs: Temperature 97.2 F Pulse Rate 62 Respiratory Rate 16 Blood Pressure 96/72 Pulse Oximetry 98 Oxygen Delivery Me thod Room Air Oxygen Flow Rate Fraction of Inspir ed Oxygen Hydration adequate: Yes Nausea and vomiting: No Pain level: 1 Mental status: Baseline
== END 2023-04-23 09:56 | disposition home or self-care (01) ==
PROVIDERS: PCP Family Medicine; Visit Provider Surgery
PROC: 0DJD8ZZ Inspection of Lower Intestinal Tract, Via Natural or Artificial Opening Endoscopic (ICD-10-PCS; CPT 45378; principal; 2023-04-23 09:30)
DX: Z12.11 Encounter for screening for malignant neoplasm of colon (principal); Z86.010 Personal history of colon polyps; K64.8 Other hemorrhoids; I10 Essential (primary) hypertension; K21.9 Gastro-esophageal reflux disease without esophagitis; E03.9 Hypothyroidism, unspecified; Z79.82 Long term (current) use of aspirin; I48.91 Unspecified atrial fibrillation
CPT/HCPCS: G0121; J2704; J7030

== ENCOUNTER → 2023-04-28 08:42 | Outpatient (BNVA) | payer MEDICARE, BC, SELFPAY | PROVIDERS: PCP Family Medicine; Visit Provider Internal Medicine | DX: M85.80 Other specified disorders of bone density and structure, unspecified site (principal); E55.9 Vitamin D deficiency, unspecified | CPT/HCPCS: 36415; 80048; 82306; 99214 ==

== ENCOUNTER 2023-05-20 12:51 | Outpatient (CLI) | payer MEDICARE, BC, SELFPAY ==
[2023-05-20 13:55] LABS: Parathyroid Hormone 30.5 pg/mL (15-65)
== END 2023-05-20 12:52 | disposition home or self-care (01) ==
LOC: LAB 12:54
PROVIDERS: PCP Family Medicine; Visit Provider Internal Medicine
DX: E55.9 Vitamin D deficiency, unspecified (principal)
CPT/HCPCS: 36415; 82310; 83970

== ENCOUNTER 2023-06-08 17:01 | Emergency (ER) | payer MEDICARE, BC, SELFPAY ==
[2023-06-08 17:46] VITALS: BP 174/87; PULSE 65; RESP 12; TEMP 36.6; O2SAT 97; BMI 29.0
--- NOTE | 2023-06-08 19:26 | CTR_ITS ---
PROCEDURE INFORMATION: Exam: CT Abdomen And Pelvis With Contrast Exam date and time: 06/08/2023 8:20 PM Age: 72 years old Clinical indication: Abdominal pain; Localized; Right lower quadrant (rlq); Prior surgery; Surgery date: 6+ months; Surgery type: Salpingoophorectomy. Csection; Patient HX: C/O rlq pain TECHNIQUE: Imaging protocol: Computed tomography of the abdomen and pelvis with contrast. Radiation optimization: All CT scans at this facility use at least one of these dose optimization techniques: automated exposure control; mA and/or kV adjustment per patient size (includes targeted exams where dose is matched to clinical indication); or iterative reconstruction. Contrast material: OMNI 350; Contrast volume: 100 ml; Contrast route: INTRAVENOUS (IV); REPORTING DATA: Count of CT and Cardiac NM exams in prior 12 months: This patient has received 3 known CTs and 0 known cardiac nuclear medicine studies in the 12 months prior to the current study. COMPARISON: CT abdomen pelvis w con* [id number] 02/10/2023 8:45 PM RADIATION DOSE METRICS: Total DLP (mGy-cm): 581.87 FINDINGS: Liver: Normal. No mass. Gallbladder and bile ducts: Normal. No calcified stones. No ductal dilation. Pancreas: Normal. No ductal dilation. Spleen: Normal. No splenomegaly. Adrenal glands: Normal. No mass. Kidneys and ureters: Interval worsening of severe right hydronephrosis without obvious dilated ureter or ureteral stone suggesting continued UPJ stenosis. Mild inflammation in right perirenal fat consistent with inflammation or urine leak from right UPJ stenosis which can be symptomatic. Stomach and bowel: Unremarkable. No obstruction. No mucosal thickening. Appendix: No evidence of appendicitis. Intraperitoneal space: Unremarkable. No free air. No significant fluid collection. Vasculature: Calcification of the abdominal aorta and/or iliac arteries consistent with atherosclerotic vessel disease. Lymph nodes: Unremarkable. No enlarged lymph nodes. Urinary bladder: Unremarkable as visualized. Reproductive: Unremarkable as visualized. Bones/joints: Moderate to severe lumbar dextroscoliosis. Severe multilevel spine degenerative changes including degenerative disc disease, spondylosis and facet degenerative changes. Soft tissues: Unremarkable. CT/CT abdomen pelvis w con* [id number] IMPRESSION: 1. Interval worsening of severe right hydronephrosis without obvious dilated ureter or ureteral stone suggesting continued UPJ stenosis. 2. Mild inflammation in right perirenal fat consistent with inflammation or urine leak from right UPJ stenosis which can be symptomatic.
[2023-06-08] MEDS: sodium chloride 0.9% 1,000 ML 999 ML IV (19:44)
[2023-06-08] MEDS: ondansetron 2 mg/ML SDV 2 mL 4 MG IVP (19:47)
[2023-06-08 19:48] VITALS: RESP 17; O2SAT 99
[2023-06-08] MEDS: morphine 4 mg/mL SDV 1 mL IVP ×2 (19:48→22:23)
[2023-06-08 20:00] LABS: Basophils % 0.3 %; Eosinophils # 0.1 10^3/uL (0.0-0.8); Eosinophils % 0.7 %; Hematocrit 38.6 % (37.0-47.0); Hemoglobin 12.8 g/dL (11.5-15.3); Lymphocytes # 1.9 10^3/uL (0.8-4.8); Lymphocytes % 15.1 %; Mean Corpuscular HGB Conc 33.2 g/dL (30.0-36.0); Mean Corpuscular Hemoglobin 31.8 pg (28.0-34.0); Mean Corpuscular Volume 95.8 fl (81-99); Mean Platelet Volume 10.7 fL (7.4-10.4); Monocytes # 1.1 10^3/uL (0.2-0.9); Neutrophils # 9.41 10^3/uL (1.8-7.7); Neutrophils % 74.6 %; Nucleated Red Blood Cells % 0 %; Platelet Count 246 10^3/cmm (130-400); Red Blood Count 4.03 10^6/uL (4.1-5.3); Red Cell Distribution Width 14.3 % (12.1-15.1); White Blood Count 12.6 10^3/uL (4.0-10.0)
[2023-06-08 20:01] VITALS: BP 156/91; PULSE 71; RESP 17; O2SAT 99
[2023-06-08 20:11] LABS: Alanine Aminotransferase 22 U/L (0-33); Albumin Level 3.9 g/dL (3.5-5.2); Alkaline Phosphatase 62 U/L (35-105); Anion Gap 14.8 (5-19); Aspartate Amino Transferase 15 U/L (0-32); Blood Urea Nitrogen 15 mg/dL (8-23); Calcium 9.3 mg/dL (8.5-10.5); Carbon Dioxide 27 mmol/L (22-29); Chloride 101 mmol/L (98-107); Globulin 2.7 g/dL (1.3-4.6); Glomerular Filtration Rate 70.9 mL/min (90-130); Glucose 91 mg/dL (65-115); Lipase 18 U/L (13-60); Osmolality Calculated 288 mOsm/kg (285-295); Potassium 3.8 mmol/L (3.5-5.1); Sodium 139 mmol/L (136-145); Total Bilirubin 0.3 mg/dL (0.15-1.2); Total Protein 6.6 g/dL (6.6-8.7)
[2023-06-08 20:12] LABS: Lactic Sepsis W/Reflex 0.9 mmol/L (0.5-2.2)
[2023-06-08] MEDS: iohexol 350 mg/mL 500 mL Btl (per mL) IV (20:21)
--- NOTE | 2023-06-08 20:40 | ED_ITS ---
HPI - Abdominal Pain General: Chief Complaint: Abdominal Pain Stated Complaint: Abd pain Time Seen by Provider: 06/08/23 19:26 Source: patient History of Present Illness: 72-year-old female presenting with right-sided abdominal pain. She has a history of hydronephrosis on the right, somewhat unexplained. She is being seen by multiple specialist including urology here, urology at [facility], spine surgery, and has an appointment with urology at [facility] in [place]. Pain today is a bit different from previous pains. Pain is localized more to the right lower quadrant. She is mildly nauseated. No vomiting. No fever. No dysuria. No hematuria. MD elicited complaint: abdominal pain Pain Consistency: constant Location: RLQ and R flank Severity: moderate Associated Symptoms: Reports nausea; Denies chills, diarrhea, dysuria, fever(s), hematochezia, hematemesis, loose stools and vomiting Review of Systems Const: Denies: fever(s), chills or body aches Eyes: Denies: change in vision Card: Denies: chest pain or palpitations Resp: Denies: dyspnea, productive cough, non-productive cough or wheezing GI: Reports: abdominal pain and nausea; Denies: vomiting, hematemesis, diarrhea or hematochezia : Denies: difficulty voiding or dysuria Skin/Breast: Denies: rash Neuro: Denies: headache(s), weakness in extremities, dizziness or confusion PFSH ED PFSH: Medical History Constipation History of colon polyps Obstruction of right ureteropelvic junction (UPJ) Osteopenia Scoliosis Surgical History History of arthroscopy of left knee History of section History of chest tube placement History of colonoscopy with polypectomy History of dilation and curettage History of laparoscopy History of left salpingo-oophorectomy History of right knee surgery History of tonsillectomy Family History Father , 49 Cancer lung Mother Skin cancer Social History Smoking and tobacco status: former smoker Alcohol intake: current Alcohol intake frequency: holidays/special occasions only Substance/Drug Use: never Marital status: Current occupational status: employed 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 Physical Exam Const: GENERAL APPEARANCE: cooperative; not frail appearing HENMT: COMMON NORMALS: normocephalic, atraumatic and Normal external nose present HEAD & SCALP: normocephalic and atraumatic FACE & SINUS: normal facial exam and face symmetric NOSE: Normal external nose present Eye: COMMON NORMALS: Equal, round and reactive pupils present and EOMs intact bilaterally PUPIL: Yes Equal, round and reactive pupils present Neck/C-Spine: GENERAL: Yes trachea midline Chest: CHEST: Yes Symmetrical chest wall rise Resp: COMMON NORMALS: normal respiratory effort, No retractions, No use of accessory muscles and clear to auscultation bilaterally AUSCULTATION: clear to auscultation bilaterally Cardio: COMMON NORMALS: regular rate and regular rhythm RATE: regular rate RHYTHM: regular rhythm GI: COMMON NORMALS: Normal to inspection, nondistended, normoactive bowel sounds present PALPATION: Yes Tenderness to palpation present (GI) Details: RLQ : BLADDER/KIDNEY EXAM: Yes CVA tenderness on the right Back/Pelvis: GENERAL BACK: Yes CVA tenderness Extremity: COMMON NORMALS: no pedal edema Neuro: MARK COMA SCALE: document GCS findings Grant coma scale eye opening: Spontaneous Mark coma scale verbal response: Orientated Grant coma scale motor response: Obey commands Grant coma scale total score: 15 SENSORY EXAM: Yes extremities (intact) Psych: COMMON NORMALS: speech normal SPEECH: Yes normal speech Skin: COMMON NORMALS: no rashes or lesions noted GENERAL SKIN EXAM: no karen hes or lesions noted Course Vital Signs: Vital signs: Vital Signs Temperature 97.8 F 06/08/23 17:46 Pulse Rate 82 06/09/23 02:35 Respiratory Rate 18 06/09/23 02:35 Blood Pressure 131/57 06/09/23 02:35 Pulse Oximetry 92 06/09/23 02:35 Oxygen Delivery Me thod Room Air 06/09/23 01:53 MDM - Abdominal Pain Medical Decision Making 72-year-old female with right-sided flank and right lower quadrant pain. She is afebrile. Vital signs are good. Pain is improved after 4 mg of morphine, but pain is returning. She has a white blood cell count of 12.6. Normal BMP. CT shows interval worsening of severe right sided hydronephrosis likely due to UPJ stenosis. No evidence of stone. There may be a urine leak from the right UPJ. Spoke with urology at [facility]. He is more than willing to see the patient, but they have no inpatient bed available. He offers to have the patient transferred to the emergency department, for evaluation there. Have spoken with the ER there, and Dr. Sow has accepted as an ER patient. She is stable for transport at this point. Lab Data 06/08/23 19:40 06/08/23 19:40 Labs/Radiology: Radiology Impressions Abdomen/Pelvis CT 06/08/23 19:26 IMPRESSION: 1. Interval worsening of severe right hydronephrosis without obvious dilated ureter or ureteral stone suggesting continued UPJ stenosis. 2. Mild inflammation in right perirenal fat consistent with inflammation or urine leak from right UPJ stenosis which can be symptomatic. Laboratory Results WBC 12.6 10^3/uL (4.0-10.0) H 06/08/23 19:40 RBC 4.03 10^6/uL (4.1-5.3) L 06/08/23 19:40 Hgb 12.8 g/dL (11.5-15.3) 06/08/23 19:40 Hct 38.6 % (37.0-47.0) 06/08/23 19:40 MCV 95.8 fl (81-99) 06/08/23 19:40 MCH 31.8 pg (28.0-34.0) 06/08/23 19:40 MCHC 33.2 g/dL (30.0-36.0) 06/08/23 19:40 RDW 14.3 % (12.1-15.1) 06/08/23 19:40 Plt Count 246 10^3/cmm (130-400) 06/08/23 19:40 MPV 10.7 fL (7.4-10.4) H 06/08/23 19:40 Neut % (Auto) 74.6 % 06/08/23 19:40 Lymph % (Auto) 15.1 % 06/08/23 19:40 [place] % (Auto) 9.0 % 06/08/23 19:40 Eos % (Auto) 0.7 % 06/08/23 19:40 Baso % (Auto) 0.3 % 06/08/23 19:40 Neut # (Auto) 9.41 10^3/uL (1.8-7.7) H 06/08/23 19:40 Lymph # (Auto) 1.9 10^3/uL (0.8-4.8) 06/08/23 19:40 [place] # (Auto) 1.1 10^3/uL (0.2-0.9) H 06/08/23 19:40 Eos # (Auto) 0.1 10^3/uL (0.0-0.8) 06/08/23 19:40 Baso # (Auto) 0.0 10^3/uL (0.0-0.1) 06/08/23 19:40 Nucleated RBC % (auto) 0 % 06/08/23 19:40 Nucleated RBCs # 0.0 /100WBC 06/08/23 19:40 Sodium 139 mmol/L (136-145) 06/08/23 19:40 Potassium 3.8 mmol/L (3.5-5.1) 06/08/23 19:40 Chloride 101 mmol/L (98-107) 06/08/23 19:40 Carbon Dioxide 27 mmol/L (22-29) 06/08/23 19:40 Anion Gap 14.8 (5-19) 06/08/23 19:40 BUN 15 mg/dL (8-23) 06/08/23 19:40 Creatinine 0.8 mg/dL (0.5-0.9) 06/08/23 19:40 GFR Calculation 70.9 mL/min (90-130) L 06/08/23 19:40 Glucose 91 mg/dL (65-115) 06/08/23 19:40 Calculated Osmolality 288 mOsm/kg (285-295) 06/08/23 19:40 Lactic Acid 0.9 mmol/L (0.5-2.2) 06/08/23 19:40 Calcium 9.3 mg/dL (8.5-10.5) 06/08/23 19:40 Total Bilirubin 0.3 mg/dL (0.15-1.2) 06/08/23 19:40 AST 15 U/L (0-32) 06/08/23 19:40 ALT 22 U/L (0-33) 06/08/23 19:40 Alkaline Phosphatase 62 U/L (35-105) 06/08/23 19:40 C-Reactive Protein 3.0 mg/L (0.0-4.9) 06/08/23 19:40 Total Protein 6.6 g/dL (6.6-8.7) 06/08/23 19:40 Albumin 3.9 g/dL (3.5-5.2) 06/08/23 19:40 Globulin 2.7 g/dL (1.3-4.6) 06/08/23 19:40 Lipase 18 U/L (13-60) 06/08/23 19:40 Urine Color Yellow (Yellow) 06/08/23 20:20 Urine Appearance Hazy (CLEAR) A 06/08/23 20:20 Urine pH 7 (5-7) 06/08/23 20:20 Ur Specific [place] 1.015 (1.005-1.030) 06/08/23 20:20 Urine Protein Neg (Negative) 06/08/23 20:20 Urine Glucose (UA) Norm (Normal) 06/08/23 20:20 Urine Ketones Negative (Negative) 06/08/23 20:20 Urine Blood Neg (Negative) 06/08/23 20:20 Urine Nitrate Negative (Negative) 06/08/23 20:20 Urine Bilirubin Neg (Negative) 06/08/23 20:20 Urine Urobilinogen Norm mg/dL (Negative) 06/08/23 20:20 Ur Leukocyte Esterase Trace (Negative) H 06/08/23 20:20 Urine RBC None /hpf (0-2) 06/08/23 20:20 Urine WBC 0-4 /hpf (0-5) H 06/08/23 20:20 Ur Squamous Epith Cells 0-4 /hpf (0-5) H 06/08/23 20:20 Amorphous Sediment Not Reportable 06/08/23 20:20 Urine Bacteria 3+ /hpf (NONE) H 06/08/23 20:20 Discharge Plan Discharge Patient Disposition: Xfer Short-Term Hosp Condition: Stable Referrals: Liz Gilman MD [Primary Care Provider] - Coding Level of Care Code ED [employer] Ax Consultant for Chg Judith
[2023-06-08 20:54] LABS: Add Urine Microscopic? YES; Bilirubin Urine Neg (Negative); Blood Urine Neg (Negative); Glucose Urine UA Norm (Normal); Ketones Urine Negative (Negative); Leukocyte Esterase Urine Trace (Negative); Nitrate Urine Negative (Negative); Protein Urine Neg (Negative); Specific Gravity, Urine 1.015 (1.005-1.030); Urine Appearance Hazy (CLEAR); Urine Color Yellow (Yellow); Urobilinogen Urine Norm (Negative); pH Urine 7 (5-7)
[2023-06-08 20:55] LABS: Bacteria Urine 3+ /hpf; Squamous Epithelial Cell Urine 0-4 /hpf (0-5); WBC Urine 0-4 /hpf (0-5)
[2023-06-08 22:41] VITALS: BP 151/94; PULSE 72; RESP 17; O2SAT 99
[2023-06-08] MEDS: sodium chloride 0.9% 1,000 ML 125 ML IV (23:12)
--- NOTE | 2023-06-08 23:47 | PC.NURSE ---
pt resting in room. lights off. fluids running and intact. pt on monitor.
[2023-06-08 23:48] VITALS: BP 140/78; RESP 15; O2SAT 94
[2023-06-09 01:01] VITALS: BP 150/62; RESP 16; O2SAT 94
[2023-06-09 01:44] VITALS: RESP 16
[2023-06-09] MEDS: morphine 4 mg/mL SDV 1 mL IVP (01:44)
[2023-06-09 01:53] VITALS: BP 146/94; PULSE 58; RESP 18; O2SAT 97
--- NOTE | 2023-06-09 02:32 | PC.NURSE ---
report given to Pedro Cardiac Catheterization Technician
[2023-06-09 02:35] VITALS: BP 131/57; PULSE 82; RESP 18; O2SAT 92
--- NOTE | 2023-06-09 02:42 | PC.NURSE ---
0.9% NS continued en route with EMS
== END 2023-06-09 02:49 | disposition short-term general hospital (02) ==
PROVIDERS: Emergency Provider Emergency Medicine; PCP Family Medicine
DX: N13.30 Unspecified hydronephrosis (principal); Z87.891 Personal history of nicotine dependence; Z87.442 Personal history of urinary calculi
CPT/HCPCS: 74177; 80053; 81001; 83605; 83690; 85025; 86140; 96361; 96374; 96375; 96376; 99285; J2270; J2405; J7030; Q9967

== ENCOUNTER 2023-06-11 18:14 | Emergency (ER) | payer MEDICARE, BC, SELFPAY ==
[2023-06-11 18:18] VITALS: BP 190/138; PULSE 93; RESP 16; TEMP 36.8; O2SAT 96; BMI 29.0
--- NOTE | 2023-06-11 18:30 | XRR_ITS ---
PROCEDURE INFORMATION: Exam: XR Abdomen Exam date and time: 06/11/2023 6:39 PM Age: 72 years old Clinical indication: Abdominal pain; Localized; Left; Additional info: Constipation TECHNIQUE: Imaging protocol: Radiologic exam of the abdomen. Views: Frontal supine view of the abdomen. 1 View. COMPARISON: CT abdomen pelvis w con* [id number] 06/08/2023 8:20 PM FINDINGS: Tubes, catheters and devices: There is a normally positioned right ureteral stent. Gastrointestinal tract: Moderate fecal burden particularly in the proximal colon. No bowel dilation. Organs: No identifiable urinary tract calcifications. Bones/joints: There is a severe lower thoracic and lumbar dextro rotational curvature. No acute findings. XR/XR KUB [id number] IMPRESSION: Nonacute findings.
[2023-06-11 19:01] LABS: Basophils % 0.3 %; Eosinophils # 0.1 10^3/uL (0.0-0.8); Eosinophils % 1.4 %; Hematocrit 38.4 % (37.0-47.0); Hemoglobin 12.7 g/dL (11.5-15.3); Lymphocytes # 1.1 10^3/uL (0.8-4.8); Lymphocytes % 15.8 %; Mean Corpuscular HGB Conc 33.1 g/dL (30.0-36.0); Mean Corpuscular Hemoglobin 31.6 pg (28.0-34.0); Mean Corpuscular Volume 95.5 fl (81-99); Mean Platelet Volume 10.5 fL (7.4-10.4); Monocytes # 0.5 10^3/uL (0.2-0.9); Monocytes % 6.9 %; Neutrophils # 5.36 10^3/uL (1.8-7.7); Neutrophils % 75.2 %; Nucleated Red Blood Cells % 0 %; Platelet Count 244 10^3/cmm (130-400); Red Blood Count 4.02 10^6/uL (4.1-5.3); Red Cell Distribution Width 13.8 % (12.1-15.1); White Blood Count 7.1 10^3/uL (4.0-10.0)
--- NOTE | 2023-06-11 19:02 | CTR_ITS ---
PROCEDURE INFORMATION: Exam: CT Abdomen And Pelvis Without Contrast Exam date and time: 06/11/2023 7:31 PM Age: 72 years old Clinical indication: Abdominal pain; Flank; Left; Additional info: Left flank pain TECHNIQUE: Imaging protocol: Computed tomography of the abdomen and pelvis without contrast. Radiation optimization: All CT scans at this facility use at least one of these dose optimization techniques: automated exposure control; mA and/or kV adjustment per patient size (includes targeted exams where dose is matched to clinical indication); or iterative reconstruction. REPORTING DATA: Count of CT and Cardiac NM exams in prior 12 months: This patient has received 4 known CTs and 0 known cardiac nuclear medicine studies in the 12 months prior to the current study. COMPARISON: CT abdomen pelvis w con* [id number] 06/08/2023 8:20 PM RADIATION DOSE METRICS: Total DLP (mGy-cm): 659.39 FINDINGS: Tubes, catheters and devices: Right ureteral stent placement with proximal pigtail in the right renal pelvis and distal pigtail in the urinary bladder. Lungs: Calcified granuloma in the right lower lobe. Multiple right pulmonary nodules measuring up to 5 mm. Liver: Normal. No mass. Gallbladder and bile ducts: Sludge in the gallbladder. No visible stones. The bile ducts are normal. Pancreas: Normal. No ductal dilation. Spleen: Normal. No splenomegaly. Adrenal glands: Normal. No mass. Kidneys and ureters: Significantly improved mild right hydronephrosis. Right perinephric stranding has nearly resolved. The left kidney and collecting system are normal. Stomach and bowel: Mild diverticulosis of the colon. No diverticulitis. Moderate stool scattered throughout the colon. Mobile cecum which is located in the right upper quadrant. Fluid-filled stomach. No wall thickening. The small bowel is unremarkable. No obstruction. Appendix: The appendix is not visualized. No secondary signs of appendicitis. Intraperitoneal space: Unremarkable. No free air. No significant fluid collection. Vasculature: Unremarkable. No abdominal aortic aneurysm. Lymph nodes: Unremarkable. No enlarged lymph nodes. Urinary bladder: Unremarkable as visualized. Reproductive: Unremarkable as visualized. Bones/joints: Severe lumbar dextroscoliosis. Severe degenerative changes of the lumbar spine. No acute fracture. Soft tissues: Unremarkable. CT/CT abdomen pelvis wo con [id number] IMPRESSION: 1. No acute findings. 2. Right ureteral stent placement with improved mild right hydronephrosis and nearly resolved perinephric stranding. 3. Stool volume in the colon could indicate constipation in the appropriate clinical setting. 4. Pulmonary nodules measuring up to 5 mm. For patients at low risk (minimal or absent history of smoking and of other known risk factors), no routine follow-up is indicated. For patients at high risk (history of smoking or of other known risk factors), consider optional CT Chest at 12 months. (Reference: Annabelle) References: Annabelle Dos Santos, et al. Guidelines for Management of Incidental Pulmonary Nodules Detected on CT Images: From the Fleischner Society 2017. Radiology. 2017;284(1):228-243.
--- NOTE | 2023-06-11 19:11 | W.ED.BACK ---
HPI - Back Pain/Injury General: Chief Complaint: Back Pain/Injury Stated Complaint: Lower Back all the way thru Time Seen by Provider: 06/11/23 18:31 Source: patient Mode of arrival: ambulatory Limitations: no limitations History of Present Illness: 72-year-old female who was seen here recently for right flank pain she is found to have hydronephrosis and a blocked ureter she is transferred to [facility] had a stent placed she states she been feeling well but today she has been having left flank pain its been severe in nature states she has been feeling constipated as well. States pain has been sharp in nature rates it an 8 out of 10 she denies any vomiting or diarrhea. Associated symptoms: Reports abdominal pain; Deny chills, dysuria, fever(s), nausea or vomiting Review of Systems Const: Denies: fever(s), chills, body aches or change in appetite ENMT: Denies: throat pain or dental pain Card: Denies: chest pain Resp: Denies: dyspnea GI: Reports: abdominal pain and constipation; Denies: nausea, vomiting or diarrhea : Reports: flank pain; Denies: dysuria Musc: Denies: neck pain or back pain Skin/Breast: Denies: rash Neuro: Denies: headache(s) PFSH ED PFSH: Medical History Constipation History of colon polyps Obstruction of right ureteropelvic junction (UPJ) Osteopenia Scoliosis Surgical History History of arthroscopy of left knee History of section History of chest tube placement History of colonoscopy with polypectomy History of dilation and curettage History of laparoscopy History of left salpingo-oophorectomy History of right knee surgery History of tonsillectomy Family History Father , 49 Cancer lung Mother Skin cancer Social History Smoking and tobacco status: former smoker Alcohol intake: current Alcohol intake frequency: holidays/special occasions only Substance/Drug Use: never Marital status: Current occupational status: employed 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 Physical Exam Const: COMMON NORMALS: no acute distress, patient oriented x3 and healthy appearing HENMT: COMMON NORMALS: normocephalic and atraumatic HEAD & SCALP: normocephalic and atraumatic Eye: COMMON NORMALS: Equal, round and reactive pupils present and EOMs intact bilaterally PUPIL: Yes Equal, round and reactive pupils present Neck/C-Spine: COMMON NORMALS: full ROM and supple Chest: COMMONS NORMALS: normal inspection of the chest and normal palpation of entire chest wall Resp: COMMON NORMALS: normal respiratory effort, No retractions, No use of accessory muscles and clear to auscultation bilaterally AUSCULTATION: clear to auscultation bilaterally Cardio: COMMON NORMALS: regular rate, regular rhythm and No murmurs present (Cardio) RATE: regular rate RHYTHM: regular rhythm GI: COMMON NORMALS: Normal to inspection, nondistended, normoactive bowel sounds present, Soft to palpation, non-tender and no masses PALPATION: Yes Soft to palpation Extremity: COMMON NORMALS: normal to inspection and full ROM Neuro: COMMON NORMALS: patient oriented x3, moves all extremities and no focal motor deficits Psych: COMMON NORMALS: mental status grossly normal, Normal thought process present and cooperative THOUGHT PROCESS: Normal thought process present Skin: COMMON NORMALS: no rashes or lesions noted and no wounds GENERAL SKIN EXAM: no rashes or lesions noted Course Vital Signs: Vital signs: Vital Signs Temperature 98.2 F 06/11/23 18:18 Pulse Rate 93 06/11/23 18:18 Respiratory Rate 16 06/11/23 18:18 Blood Pressure 190/138 06/11/23 18:18 Pulse Oximetry 96 06/11/23 18:18 Oxygen Delivery Me thod Room Air 06/11/23 18:18 MDM - Back Pain/Injury Medical Decision Making Patient presents with abdominal pain she recently had a stent placed blood work here is normal CT shows no acute findings she is well-appearing here she is stable for discharge she is to follow-up with her urologist as scheduled return if worsening. Medical Records I reviewed the patient's medical records. Labs I reviewed the patient's lab results. 06/11/23 18:50 06/11/23 18:50 Radiology Impressions KUB X-Ray 06/11/23 18:30 IMPRESSION: Nonacute findings. Abdomen/Pelvis CT 06/11/23 19:02 IMPRESSION: 1. No acute findings. 2. Right ureteral stent placement with improved mild right hydronephrosis and nearly resolved perinephric stranding. 3. Stool volume in the colon could indicate constipation in the appropriate clinical setting. 4. Pulmonary nodules measuring up to 5 mm. For patients at low risk (minimal or absent history of smoking and of other known risk factors), no routine follow-up is indicated. For patients at high risk (history of smoking or of other known risk factors), consider optional CT Chest at 12 months. (Reference: Annabelle) References: Annabelle Dos Santos, et al. Guidelines for Management of Incidental Pulmonary Nodules Detected on CT Images: From the Fleischner Society 2017. Radiology. 2017;284(1):228-243. Laboratory Results WBC 7.1 10^3/uL (4.0-10.0) 06/11/23 18:50 RBC 4.02 10^6/uL (4.1-5.3) L 06/11/23 18:50 Hgb 12.7 g/dL (11.5-15.3) 06/11/23 18:50 Hct 38.4 % (37.0-47.0) 06/11/23 18:50 MCV 95.5 fl (81-99) 06/11/23 18:50 MCH 31.6 pg (28.0-34.0) 06/11/23 18:50 MCHC 33.1 g/dL (30.0-36.0) 06/11/23 18:50 RDW 13.8 % (12.1-15.1) 06/11/23 18:50 Plt Count 244 10^3/cmm (130-400) 06/11/23 18:50 MPV 10.5 fL (7.4-10.4) H 06/11/23 18:50 Neut % (Auto) 75.2 % 06/11/23 18:50 Lymph % (Auto) 15.8 % 06/11/23 18:50 [place] % (Auto) 6.9 % 06/11/23 18:50 Eos % (Auto) 1.4 % 06/11/23 18:50 Baso % (Auto) 0.3 % 06/11/23 18:50 Neut # (Auto) 5.36 10^3/uL (1.8-7.7) 06/11/23 18:50 Lymph # (Auto) 1.1 10^3/uL (0.8-4.8) 06/11/23 18:50 [place] # (Auto) 0.5 10^3/uL (0.2-0.9) 06/11/23 18:50 Eos # (Auto) 0.1 10^3/uL (0.0-0.8) 06/11/23 18:50 Baso # (Auto) 0.0 10^3/uL (0.0-0.1) 06/11/23 18:50 Nucleated RBC % (auto) 0 % 06/11/23 18:50 Nucleated RBCs # 0.0 /100WBC 06/11/23 18:50 Sodium 134 mmol/L (136-145) L 06/11/23 18:50 Potassium 3.9 mmol/L (3.5-5.1) 06/11/23 18:50 Chloride 97 mmol/L (98-107) L 06/11/23 18:50 Carbon Dioxide 26 mmol/L (22-29) 06/11/23 18:50 Anion Gap 14.9 (5-19) 06/11/23 18:50 BUN 7 mg/dL (8-23) L 06/11/23 18:50 Creatinine 0.6 mg/dL (0.5-0.9) 06/11/23 18:50 GFR Calculation 98.8 mL/min (90-130) 06/11/23 18:50 Glucose 128 mg/dL (65-115) H 06/11/23 18:50 Calculated Osmolality 278 mOsm/kg (285-295) L 06/11/23 18:50 Calcium 9.0 mg/dL (8.5-10.5) 06/11/23 18:50 Total Bilirubin 0.4 mg/dL (0.15-1.2) 06/11/23 18:50 AST 23 U/L (0-32) 06/11/23 18:50 ALT 24 U/L (0-33) 06/11/23 18:50 Alkaline Phosphatase 67 U/L (35-105) 06/11/23 18:50 Total Protein 6.9 g/dL (6.6-8.7) 06/11/23 18:50 Albumin 3.9 g/dL (3.5-5.2) 06/11/23 18:50 Globulin 3.0 g/dL (1.3-4.6) 06/11/23 18:50 Lipase 18 U/L (13-60) 06/11/23 18:50 Urine Color Yellow (Yellow) 06/11/23 19:25 Urine Appearance Hazy (CLEAR) A 06/11/23 19:25 Urine pH 9 (5-7) H 06/11/23 19:25 Ur Specific [place] 1.010 (1.005-1.030) 06/11/23 19:25 Urine Protein Neg (Negative) 06/11/23 19:25 Urine Glucose (UA) Norm (Normal) 06/11/23 19:25 Urine Ketones Negative (Negative) 06/11/23 19:25 Urine Blood 3+ (Negative) H 06/11/23 19:25 Urine Nitrate Negative (Negative) 06/11/23 19:25 Urine Bilirubin Neg (Negative) 06/11/23 19:25 Prot Sulfosalicylic Acd Negative (Negative) 06/11/23 19:25 Urine Urobilinogen Norm mg/dL (Negative) 06/11/23 19:25 Ur Leukocyte Esterase Trace (Negative) H 06/11/23 19:25 Urine RBC 80-100 /hpf (0-2) H 06/11/23 19:25 Urine WBC 5-10 /hpf (0-5) H 06/11/23 19:25 Ur Squamous Epith Cells 0-4 /hpf (0-5) H 06/11/23 19:25 Amorphous Sediment Not Reportable 06/11/23 19:25 Urine Bacteria Trace /hpf (NONE) 06/11/23 19:25 Discharge Plan Discharge Patient Disposition: Home Clinical Impression: Abdominal pain Condition: Stable Prescriptions: No Action multivitamin Tablet 1 tab PO DAILY omega3 1 tab PO DAILY calcium/magnes/zinc 1 tab PO DAILY magnesium citrate 100 mg capsule 100 mg PO DAILY polyethylene glycol 3350 [Miralax] 17 gram/dose powder 4 g PO DAILY PRN (Reason: Constipation) magnesium oxide 500 mg capsule 500 mg PO DAILY melatonin 3 mg capsule 3 mg PO DAILY dicyclomine 10 mg capsule 10 mg PO BID Qty: 60 0RF prednisone 20 mg tablet 40 mg PO DAILY 5 Days Qty: 10 0RF digestive enzymes Tablet 1 tab PO DAILY Vitamin D3 1 cap PO DAILY apple cider vinegar 1 tab PO DAILY Discharge Orders: Discharge ED (Routine); Ordered 06/11/23 Ordered By: Elly Bassett Referrals: Liz Gilman MD [Primary Care Provider] - Discharge Diet: Advance as tolerated Discharge Activity: Resume usual activity Patient Instructions: Abdominal Pain (ED) Coding Level of Care Code ED [employer] Childcare Attendant for David Wong
[2023-06-11] MEDS: morphine 4 mg/mL SDV 1 mL IVP (19:25)
[2023-06-11] MEDS: ondansetron 2 mg/ML SDV 2 mL 4 MG IVP (19:25)
[2023-06-11 19:31] LABS: Alanine Aminotransferase 24 U/L (0-33); Albumin Level 3.9 g/dL (3.5-5.2); Alkaline Phosphatase 67 U/L (35-105); Anion Gap 14.9 (5-19); Aspartate Amino Transferase 23 U/L (0-32); Blood Urea Nitrogen 7 mg/dL (8-23); Carbon Dioxide 26 mmol/L (22-29); Chloride 97 mmol/L (98-107); Glomerular Filtration Rate 98.8 mL/min (90-130); Glucose 128 mg/dL (65-115); Lipase 18 U/L (13-60); Osmolality Calculated 278 mOsm/kg (285-295); Potassium 3.9 mmol/L (3.5-5.1); Sodium 134 mmol/L (136-145); Total Bilirubin 0.4 mg/dL (0.15-1.2); Total Protein 6.9 g/dL (6.6-8.7)
[2023-06-11 19:41] LABS: Add Urine Microscopic? YES; Bilirubin Urine Neg (Negative); Blood Urine 3+ (Negative); Glucose Urine UA Norm (Normal); Ketones Urine Negative (Negative); Leukocyte Esterase Urine Trace (Negative); Nitrate Urine Negative (Negative); Protein Urine Neg (Negative); Sulfosalicylic Acid Urine Negative (Negative); Urine Appearance Hazy (CLEAR); Urine Color Yellow (Yellow); Urobilinogen Urine Norm (Negative); pH Urine 9 (5-7)
[2023-06-11 19:42] LABS: RBC Urine 80-100 /hpf (0-2)
[2023-06-11 19:43] LABS: Add Urine Culture? Yes; Bacteria Urine TRACE /hpf; Squamous Epithelial Cell Urine 0-4 /hpf (0-5)
[2023-06-11] MEDS: hyDRALAzine 20 mg/mL INJ 1 mL 10 MG IVP (20:38)
== END 2023-06-11 21:00 | disposition home or self-care (01) ==
PROVIDERS: Emergency Provider Emergency Medicine; PCP Family Medicine
DX: N13.30 Unspecified hydronephrosis (principal); R10.9 Unspecified abdominal pain; Z87.891 Personal history of nicotine dependence
CPT/HCPCS: 74018; 74176; 80053; 81001; 83690; 85025; 87077; 87086; 87186; 96374; 96375; 99285; J0360; J2270; J2405

== ENCOUNTER 2023-08-28 08:00 | Oncology outpatient (recurring) (ONCR) | payer MEDICARE, BC, SELFPAY ==
--- NOTE | 2023-08-27 15:57 | PC.NURSE ---
Patient blood drawn and rescheduled injection for am due to no results available. Patient tolerated well.
[2023-08-27 16:18] LABS: Albumin Level 3.8 g/dL (3.5-5.2); Glomerular Filtration Rate 82.7 mL/min (90-130)
[2023-08-27 16:34] LABS: 25 Hydroxy Vitamin D 37 ng/mL (30-100)
[2023-08-28 08:02] VITALS: BP 156/72; PULSE 82; RESP 18; TEMP 36.8; O2SAT 98
[2023-08-28] MEDS: denosumab 60 mg SDV SUBCUT (08:21)
== END 2023-09-23 23:59 | disposition home or self-care (01) ==
PROVIDERS: PCP Family Medicine; Visit Provider Internal Medicine
DX: M85.80 Other specified disorders of bone density and structure, unspecified site (principal); Z53.9 Procedure and treatment not carried out, unspecified reason
CPT/HCPCS: 36415; 82040; 82306; 82310; 82565; 96372; J0897

== ENCOUNTER 2023-12-10 09:47 | Outpatient (CLI) | payer MEDICARE, BC, SELFPAY ==
--- NOTE | 2023-12-10 09:53 | XR_ITS ---
WS: [id number] RIGHT KNEE: 3 VIEW(S) TECHNIQUE: AP, oblique(s) and lateral. HISTORY: r knee pain COMPARISON: None available. No fracture or dislocation. Moderate to severe narrowing of the lateral compartment. There is new bone upon bone with sclerosis a nd minimal subchondral cystic changes along the tibial plateau. Lateral marginal osteophytes. Mild va lgus. Additional mild narrowing at the medial and patellofemoral joint spaces. No joint effusion. No soft tissue abnormality. IMPRESSION: 1. 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 2. Mild osteoarthritis involving the patellofemoral and medial compartment.
--- NOTE | 2023-12-10 09:53 | XR_ITS ---
WS: [id number] LEFT KNEE: 3 VIEW(S) TECHNIQUE: AP, oblique(s) and lateral. HISTORY: l knee pain COMPARISON: 01/03/2010 Progression of osteoarthritic changes since 2009. Mild narrowing of all 3 compartments with small mar ginal osteophytes. Most significant narrowing at the patellofemoral joint. Joint spaces are mildly narrowed. No joint effusion. No soft tissue abnormality. IMPRESSION: Mild tricompartment osteoarthritis, greatest joint space narrowing involving the patellofemoral artic ulation.
== END 2023-12-10 09:48 | disposition home or self-care (01) ==
LOC: RAD 09:47
PROVIDERS: PCP Family Medicine; Visit Provider Family Medicine
DX: M17.0 Bilateral primary osteoarthritis of knee (principal)
CPT/HCPCS: 73562

== ENCOUNTER 2024-01-26 09:10 | Outpatient (CLI) | payer MEDICARE, BC, SELFPAY ==
--- NOTE | 2024-01-26 09:18 | MM_ITS ---
WS: [id number] BILATERAL SCREENING DIGITAL TOMOSYNTHESIS MAMMOGRAM WITH CAD HISTORY: SCREENING COMPARISON: 01/24/2023 and 01/22/2022 Bilateral CC and MLO views with tomosynthesis and synthetic mammography submitted. Computer aided det ection analyzed. Breast composition: There are scattered areas of fibroglandular density. No suspicious masses, microc alcifications or architectural distortion. Benign calcifications within each breast are stable. Numer ous calcifications RIGHT breast. IMPRESSION: MM/[place] [id number] BI-RADS: 2-Benign FOLLOW UP: 1 Year Follow-up
== END 2024-01-26 09:11 | disposition home or self-care (01) ==
LOC: RAD 09:10
PROVIDERS: PCP Family Medicine; Visit Provider Family Medicine
DX: Z12.31 Encounter for screening mammogram for malignant neoplasm of breast (principal)
CPT/HCPCS: 77063; 77067

== ENCOUNTER 2024-02-19 14:03 | Outpatient (CLI) | payer MEDICARE, BC, SELFPAY ==
[2024-02-19 15:21] LABS: Alanine Aminotransferase 20 U/L (0-33); Albumin Level 3.9 g/dL (3.5-5.2); Alkaline Phosphatase 71 U/L (35-105); Anion Gap 12.3 (5-19); Aspartate Amino Transferase 28 U/L (0-32); Blood Urea Nitrogen 21 mg/dL (8-23); Calcium 8.9 mg/dL (8.5-10.5); Carbon Dioxide 27 mmol/L (22-29); Chloride 108 mmol/L (98-107); Globulin 2.7 g/dL (1.3-4.6); Glucose 110 mg/dL (65-115); Osmolality Calculated 300 mOsm/kg (285-295); Potassium 4.3 mmol/L (3.5-5.1); Sodium 143 mmol/L (136-145); Total Bilirubin 0.3 mg/dL (0.15-1.2); Total Protein 6.6 g/dL (6.6-8.7)
== END 2024-02-19 14:04 | disposition home or self-care (01) ==
LOC: LAB 14:04
PROVIDERS: PCP Family Medicine; Visit Provider Internal Medicine
DX: M81.0 Age-related osteoporosis without current pathological fracture (principal)
CPT/HCPCS: 36415; 80053

== ENCOUNTER 2024-03-04 09:21 | Oncology outpatient (recurring) (ONCR) | payer MEDICARE, BC, SELFPAY ==
[2024-03-04 09:38] VITALS: BP 140/94; PULSE 63; RESP 18; TEMP 36.8; O2SAT 99
[2024-03-04] MEDS: denosumab 60 mg SDV SUBCUT (09:45)
== END 2024-03-23 23:59 | disposition home or self-care (01) ==
LOC: ONCMED 09:22
PROVIDERS: PCP Family Medicine; Visit Provider Internal Medicine
DX: M85.80 Other specified disorders of bone density and structure, unspecified site (principal)
CPT/HCPCS: 96372; J0897

== ENCOUNTER → 2024-04-28 14:41 | Outpatient (BNVA) | payer MEDICARE, BC, SELFPAY | PROVIDERS: PCP Family Medicine; Visit Provider Family Medicine | DX: M17.0 Bilateral primary osteoarthritis of knee (principal); M85.80 Other specified disorders of bone density and structure, unspecified site; E55.9 Vitamin D deficiency, unspecified | CPT/HCPCS: 80048; 82306 ==

== ENCOUNTER → 2024-04-29 08:14 | Outpatient (BNVA) | payer MEDICARE, BC, SELFPAY | PROVIDERS: PCP Family Medicine; Visit Provider Internal Medicine | DX: M85.80 Other specified disorders of bone density and structure, unspecified site (principal); E55.9 Vitamin D deficiency, unspecified; M41.9 Scoliosis, unspecified | CPT/HCPCS: 99214 ==

== ENCOUNTER 2024-08-31 08:53 | Oncology outpatient (recurring) (ONCR) | payer MEDICARE, BC, SELFPAY ==
[2024-08-31] MEDS: denosumab 60 mg SDV SUBCUT (09:11)
[2024-08-31 09:41] LABS: Calcium 9.2 mg/dL (8.5-10.5)
== END 2024-09-23 23:59 | disposition home or self-care (01) ==
PROVIDERS: PCP Family Medicine; Visit Provider Internal Medicine
DX: M85.80 Other specified disorders of bone density and structure, unspecified site (principal); Z79.899 Other long term (current) drug therapy
CPT/HCPCS: 36415; 82310; 96372; J0897

== ENCOUNTER 2024-09-30 14:28 | Outpatient (CLI) | payer MEDICARE, BC, SELFPAY ==
--- NOTE | 2024-09-30 14:31 | XR_ITS ---
WS: [id number] DEXA (DUAL ENERGY X-RAY ABSORPTIOMETRY) Bone mineral density was performed using a [employer] machine. HISTORY: OSTEOPENIA COMPARISON: 09/25/2022 Lumbar spine BMD (L1-L4): 1.335 g/cm2 T score: 1.3 Z score: 2.7 Total hip BMD: Left: 0.738 g/cm2. T score: -2.1 Z score: -0.8 Right: 0.716 g/cm2. T score: -2.3 Z score: -1.0 10 year probability of a major osteoporotic fracture is 16.7%. Compared to the prior study from 09/25/2022. Lumbar spine bone mineral density has increased by 9.6%. Bilateral hips bone mineral density has decreased by 2.4%. XR/XR DEXA axial skeleton* [id number] IMPRESSION: OSTEOPENIA based upon the WHO classification for females. Significant decrease in bone mineral density within the hips since the prior st udy. Bone mineral density within the lumbar spine has significantly increased since the prior study. Bone mineral density is probably falsely elevated due to scler osis. Patient has significant scoliosis of the spine. More accurate surveillanc e of bone mineral density within the hips.
== END 2024-09-30 14:29 | disposition home or self-care (01) ==
LOC: RAD 14:29
PROVIDERS: PCP Family Medicine; Visit Provider Internal Medicine
DX: Z13.820 Encounter for screening for osteoporosis; M81.0 Age-related osteoporosis without current pathological fracture; M85.80 Other specified disorders of bone density and structure, unspecified site
CPT/HCPCS: 77080

== ENCOUNTER 2024-10-20 09:54 | Outpatient (CLI) | payer MEDICARE, BC, SELFPAY ==
[2024-10-20 10:34] LABS: Alanine Aminotransferase 18 U/L (0-33); Alkaline Phosphatase 76 U/L (35-105); Anion Gap 11.4 (5-19); Aspartate Amino Transferase 20 U/L (0-32); Blood Urea Nitrogen 14 mg/dL (8-23); Calcium 9.7 mg/dL (8.5-10.5); Carbon Dioxide 30 mmol/L (22-29); Chloride 105 mmol/L (98-107); Globulin 2.4 g/dL (1.3-4.6); Glucose 93 mg/dL (65-115); Osmolality Calculated 294 mOsm/kg (285-295); Potassium 4.4 mmol/L (3.5-5.1); Sodium 142 mmol/L (136-145); Total Bilirubin 0.3 mg/dL (0.15-1.2); Total Protein 6.4 g/dL (6.6-8.7)
[2024-10-20 10:50] LABS: 25 Hydroxy Vitamin D 31 ng/mL (30-100)
== END 2024-10-20 09:55 | disposition home or self-care (01) ==
LOC: LAB 09:56
PROVIDERS: PCP Family Medicine; Visit Provider Internal Medicine
DX: M85.80 Other specified disorders of bone density and structure, unspecified site (principal); E55.9 Vitamin D deficiency, unspecified
CPT/HCPCS: 80053; 82306

== ENCOUNTER → 2024-10-26 08:30 | Outpatient (BNVA) | payer MEDICARE, BC, SELFPAY | PROVIDERS: PCP Family Medicine; Visit Provider Internal Medicine | DX: M85.80 Other specified disorders of bone density and structure, unspecified site (principal); E55.9 Vitamin D deficiency, unspecified; M41.9 Scoliosis, unspecified | CPT/HCPCS: 99214 ==

== ENCOUNTER → 2024-12-15 12:40 | Outpatient (BNVA) | payer MEDICARE, BC, SELFPAY | PROVIDERS: PCP Family Medicine; Visit Provider Family Medicine | DX: D64.9 Anemia, unspecified (principal); G25.81 Restless legs syndrome | CPT/HCPCS: 80053; 82728; 83735; 85025 ==

== ENCOUNTER → 2025-01-21 12:38 | Outpatient (BNVA) | payer MEDICARE, BC, SELFPAY | PROVIDERS: PCP Family Medicine; Visit Provider Family Medicine | DX: Z00.00 Encounter for general adult medical examination without abnormal findings (principal) | CPT/HCPCS: 86765 ==

== ENCOUNTER 2025-01-28 08:50 | Outpatient (CLI) | payer MEDICARE, BC, SELFPAY ==
--- NOTE | 2025-01-28 | MM_ITS ---
WS: [id number] BILATERAL SCREENING DIGITAL TOMOSYNTHESIS MAMMOGRAM WITH CAD HISTORY: ANNUAL SCREENING COMPARISON: 01/26/2024, 01/24/2023 Bilateral CC and MLO views with tomosynthesis and synthetic mammography submitted. Computer aided detection analyzed. Breast composition: The breasts are heterogeneously dense, which may obscure small masses. No suspicious masses, microcalcifications or architectural distortion. Numerous scattered calcifications within each breast are similar to prior studies. MM/MM [facility] tomosynthesis [id number] IMPRESSION: BI-RADS: 2 - Benign FOLLOW UP: 1 Year Follow-up
== END 2025-01-28 08:51 | disposition home or self-care (01) ==
LOC: RAD 08:52
PROVIDERS: PCP Family Medicine; Visit Provider Family Medicine
DX: Z12.31 Encounter for screening mammogram for malignant neoplasm of breast (principal); R92.333 Mammographic heterogeneous density, bilateral breasts; R92.1 Mammographic calcification found on diagnostic imaging of breast
CPT/HCPCS: 77063; 77067

== ENCOUNTER 2025-02-24 08:33 | Outpatient (CLI) | payer MEDICARE, BC, SELFPAY ==
[2025-02-24 09:18] LABS: Alanine Aminotransferase 12 U/L (0-33); Alkaline Phosphatase 86 U/L (35-105); Anion Gap 14.1 (5-19); Aspartate Amino Transferase 15 U/L (0-32); Blood Urea Nitrogen 14 mg/dL (8-23); Calcium 9.3 mg/dL (8.5-10.5); Carbon Dioxide 26 mmol/L (22-29); Chloride 104 mmol/L (98-107); Globulin 2.6 g/dL (1.3-4.6); Glucose 101 mg/dL (65-115); Osmolality Calculated 291 mOsm/kg (285-295); Potassium 4.1 mmol/L (3.5-5.1); Sodium 140 mmol/L (136-145); Total Bilirubin 0.3 mg/dL (0.15-1.2); Total Protein 6.6 g/dL (6.6-8.7)
[2025-02-24 09:31] LABS: 25 Hydroxy Vitamin D 41 ng/mL (30-100)
== END 2025-02-24 08:34 | disposition home or self-care (01) ==
LOC: LAB 08:36
PROVIDERS: PCP Family Medicine; Visit Provider Internal Medicine
DX: E55.9 Vitamin D deficiency, unspecified (principal); M85.80 Other specified disorders of bone density and structure, unspecified site
CPT/HCPCS: 36415; 80053; 82306

== ENCOUNTER 2025-03-08 08:50 | Oncology outpatient (recurring) (ONCR) | payer MEDICARE, BC, SELFPAY ==
[2025-03-08] MEDS: denosumab 60 mg SDV SUBCUT (09:13)
[2025-03-08 09:17] VITALS: BP 145/74; PULSE 60; RESP 16; TEMP 36.4; O2SAT 98
== END 2025-03-23 23:59 | disposition home or self-care (01) ==
LOC: ONCMED 08:51
PROVIDERS: PCP Family Medicine; Visit Provider Internal Medicine
DX: M85.80 Other specified disorders of bone density and structure, unspecified site (principal); Z79.899 Other long term (current) drug therapy
CPT/HCPCS: 96372; J0897

== ENCOUNTER 2025-04-14 09:31 | Outpatient (CLI) | payer MEDICARE, BC, SELFPAY ==
[2025-04-14 10:21] LABS: Alanine Aminotransferase 14 U/L (0-33); Albumin Level 3.8 g/dL (3.5-5.2); Alkaline Phosphatase 87 U/L (35-105); Anion Gap 14.1 (5-19); Aspartate Amino Transferase 17 U/L (0-32); Blood Urea Nitrogen 15 mg/dL (8-23); Calcium 9.1 mg/dL (8.5-10.5); Carbon Dioxide 26 mmol/L (22-29); Chloride 105 mmol/L (98-107); Globulin 2.8 g/dL (1.3-4.6); Glucose 87 mg/dL (65-115); Osmolality Calculated 292 mOsm/kg (285-295); Potassium 4.1 mmol/L (3.5-5.1); Sodium 141 mmol/L (136-145); Total Bilirubin 0.3 mg/dL (0.15-1.2); Total Protein 6.6 g/dL (6.6-8.7)
[2025-04-14 10:36] LABS: 25 Hydroxy Vitamin D 67 ng/mL (30-100)
== END 2025-04-14 09:32 | disposition home or self-care (01) ==
PROVIDERS: PCP Family Medicine; Visit Provider Internal Medicine
DX: M85.80 Other specified disorders of bone density and structure, unspecified site (principal); M17.0 Bilateral primary osteoarthritis of knee
CPT/HCPCS: 36415; 80053; 82306

== ENCOUNTER → 2025-04-27 07:49 | Outpatient (BNVA) | payer MEDICARE, BC, SELFPAY | PROVIDERS: PCP Family Medicine; Visit Provider Internal Medicine | DX: M41.9 Scoliosis, unspecified (principal); M85.80 Other specified disorders of bone density and structure, unspecified site; E55.9 Vitamin D deficiency, unspecified | CPT/HCPCS: 99214 ==

== ENCOUNTER 2025-09-05 16:29 | Outpatient (CLI) | payer MEDICARE, BC, SELFPAY ==
[2025-09-05 18:13] LABS: Alanine Aminotransferase 23 U/L (0-33); Albumin Level 4.0 g/dL (3.5-5.2); Alkaline Phosphatase 76 U/L (35-105); Anion Gap 14.9 (5-19); Aspartate Amino Transferase 20 U/L (0-32); Blood Urea Nitrogen 18 mg/dL (8-23); Calcium 9.7 mg/dL (8.5-10.5); Carbon Dioxide 27 mmol/L (22-29); Chloride 103 mmol/L (98-107); Globulin 2.8 g/dL (1.3-4.6); Glucose 94 mg/dL (65-115); Osmolality Calculated 294 mOsm/kg (285-295); Potassium 3.9 mmol/L (3.5-5.1); Sodium 141 mmol/L (136-145); Total Protein 6.8 g/dL (6.6-8.7)
== END 2025-09-05 16:30 | disposition home or self-care (01) ==
LOC: LAB 16:32
PROVIDERS: PCP Family Medicine; Visit Provider Internal Medicine
DX: E55.9 Vitamin D deficiency, unspecified (principal); M85.80 Other specified disorders of bone density and structure, unspecified site; M41.9 Scoliosis, unspecified
CPT/HCPCS: 36415; 80053; 82306

== ENCOUNTER 2025-09-06 10:43 | Oncology outpatient (recurring) (ONCR) | payer MEDICARE, BC, SELFPAY ==
[2025-09-06 12:05] VITALS: BP 124/65; PULSE 66
[2025-09-06] MEDS: denosumab 60 mg SDV (Infusion Clinic Only) SUBCUT (12:11)
== END 2025-09-23 23:59 | disposition home or self-care (01) ==
PROVIDERS: PCP Family Medicine; Visit Provider Internal Medicine
DX: M85.80 Other specified disorders of bone density and structure, unspecified site (principal); Z79.899 Other long term (current) drug therapy
CPT/HCPCS: 96372; J0897